=== PATIENT | male | born 1930 | race Caucasian/White ===

== ENCOUNTER 2018-07-22 12:06 | Emergency (ER) | payer MEDICARE, MEDICAID ==
[~2018-07-22] VITALS: Ht 177.8 cm; Wt 70.8 kg
[~2018-07-22 12:06] MED LIST: ALBUT2; AMLO2.5T2 PO; BACL10TA PO; DIAZ5TAB4 PO; DM/P240L8 PO; FLUT1DIS3 INH; LOSA25TA3 PO; OMEP20CA4 PO; SULF1TAB48 PO; WARF3TAB29 PO
--- NOTE | 2018-07-22 12:13 | NUR ---
DR PRUITT AT BEDSIDE
--- NOTE | 2018-07-22 12:25 | NUR ---
BIB RA 860 FROM [facility] HERE FOR EVAL OF RIGHT HIP / LEG PAIN - NO TRAUMA , MUSCLE CONTRACTED LE . DNR. TO ER BED 9, HOOKED TO MONITOR, AWAITING MD KWAN
[2018-07-22] MEDS ORDERED: ONDANSETRON HCL/PF 4 MG/2 ML VIAL ONE (12:27)
[2018-07-22] MEDS ORDERED: MORPHINE SULFATE INJ 4 MG/ML DISP.SYRIN ONE (12:28)
[2018-07-22] MEDS ORDERED: MORPHINE SULFATE INJ 2 MG/ML DISP.SYRIN IV ONE (12:30)
[2018-07-22] MEDS ORDERED: ONDANSETRON HCL/PF 4 MG/2 ML VIAL IVP ONE (12:30)
[2018-07-22] MEDS ORDERED: IV NS 0.9% 1,000 ML BAG IV ONE ×2 (12:30→13:00)
[2018-07-22] MEDS ORDERED: HYDROMORPHONE 1 MG/1 ML DISP.SYRIN IV ONE (13:00)
--- NOTE | 2018-07-22 13:00 | NUR ---
MARGO ACHARYA FROM [facility] AND CAN BENÍTEZ FROM [facility] AT BEDSIDE
[2018-07-22] MEDS ORDERED: HYDROMORPHONE 1 MG/1 ML DISP.SYRIN ONE (13:08)
[2018-07-22 13:14] LABS: BASOPHILS % (AUTO) 0.6 % (0.0-2.0); EOSINOPHILS % (AUTO) 2.7 % (0.0-6.0); HEMATOCRIT 39 % (39-51); HEMOGLOBIN 12.9 g/dL (13.5-17.5); LYMPHOCYTES % (AUTO) 13.2 % (20.0-44.0); MEAN CORPUSCULAR HGB CONC 33 g/dl (31.0-36.0); MEAN CORPUSCULAR VOLUME 93 fL (80-96); MONOCYTES # (AUTO) 0.8 /CMM (0.1-1.30); MONOCYTES % (AUTO) 10.5 % (2.0-12.0); NEUTROPHILS # (AUTO) 5.5 /CMM (1.8-8.9); PLATELET COUNT (AUTO) 220 /CMM (150-450); RED BLOOD CELL COUNT(AUTO) 4.21 MIL/uL (4.5-6.0); WHITE BLOOD COUNT (AUTO) 7.6 K/uL (4.3-11.0)
[2018-07-22 13:21] LABS: CALCIUM, SERUM 8.9 mg/dL (8.5-10.1); CARBON DIOXIDE 27 mmol/L (21-32); CHLORIDE 105 mmol/L (98-107); CREATININE 0.7 mg/dL (0.6-1.3); GLUCOSE 102 mg/dL (74-106); POTASSIUM 4.1 mmol/L (3.5-5.1); SODIUM SERUM 140 mmol/L (136-145); UREA NITROGEN, BLOOD 9 mg/dL (7-18)
--- NOTE | 2018-07-22 13:54 | NUR ---
SAROJ HYLTON,SISTER WITH DPO[employer],CALLED AT [phone] PRUITT
--- NOTE | 2018-07-22 14:10 | NUR ---
[place] CALLED AT [phone],ETA [phone] PER SHANIQUA,[facility] INST[facility]ER AT BEDSIDE AGGREED W/ ETA
[2018-07-22] MEDS ORDERED: HYDROMORPHONE 1 MG/1 ML DISP.SYRIN IV PRN (14:30)
[2018-07-22] MEDS ORDERED: ONDANSETRON HCL/PF 4 MG/2 ML VIAL IVP PRN (14:30)
[2018-07-22] MEDS ORDERED: MAGNESIUM HYDROXIDE 30 ML UDC PO PRN (14:30)
[2018-07-22] MEDS ORDERED: Z GUARD REMEDY 2 OZ OINT TP PRN (14:30)
[2018-07-22] MEDS ORDERED: HYDROCODONE/APAP 10/325MG 1 EA TABLET PO PRN (14:30)
[2018-07-22] MEDS ORDERED: ACETAMINOPHEN 325 MG TABLET PO PRN (14:30)
[2018-07-22] MEDS ORDERED: HYDROCODONE/APAP 5/325MG 1 EACH TABLET PO PRN (14:30)
[2018-07-22] MEDS ORDERED: MAG HYDROX/AL HYDROX/SIMETH 30 ML UDC PO PRN (14:30)
[2018-07-22] MEDS ORDERED: ZOLPIDEM TARTRATE 5 MG TABLET PO PRN (14:30)
--- NOTE | 2018-07-22 16:00 | NUR ---
IV removed. Catheter intact and site benign. Pressure and 4x4 applied to site. No bleeding noted. PICKED-UP BY [facility] UNIT [facility], WITH MARGO ACHARYA OF [facility] AND CAREGIVER CHRISTINA DELGADILLO TOOK ALL BELONGINGS WITH HIM, PATIENT IN STABLE CONDITION. WILL BE BROUGHT TO [id number] [place] [address], [address] [address]
[2018-07-22 16:19] VITALS: BP 110/73
[2018-07-22] MEDS ORDERED: DIAZEPAM 5 MG TABLET PO SCH (17:00)
[2018-07-22] MEDS ORDERED: WARFARIN SODIUM 1 MG TABLET PO SCH (17:00)
[2018-07-23] MEDS ORDERED: PANTOPRAZOLE 40 MG TABLET.DR PO SCH (07:30)
[2018-07-23] MEDS ORDERED: BACLOFEN (10 MG) 10 MG TABLET PO SCH (09:00)
[2018-07-23] MEDS ORDERED: LOSARTAN POTASSIUM 25 MG TABLET PO SCH (09:00)
[2018-07-23] MEDS ORDERED: AMLODIPINE BESYLATE 2.5 MG TABLET PO SCH (09:00)
[2018-07-23] MEDS ORDERED: FLUTICASONE/VILANTEROL 1 EACH BLST.W.DEV IH SCH (09:00)
== END 2018-07-22 16:15 | disposition home or self-care (01) ==
LOC: ER 12:08 → MEDSG2 13:11 → UNDOADMIN 13:11
DX: S72.491A Other fracture of lower end of right femur, initial encounter for closed fracture (principal); G80.9 Cerebral palsy, unspecified; J45.909 Unspecified asthma, uncomplicated; R33.9 Retention of urine, unspecified; Z88.6 Allergy status to analgesic agent; Z88.1 Allergy status to other antibiotic agents; Z88.9 Allergy status to unspecified drugs, medicaments and biological substances; X58.XXXA Exposure to other specified factors, initial encounter; Y93.89 Activity, other specified; Y92.89 Other specified places as the place of occurrence of the external cause; Y99.8 Other external cause status
CPT/HCPCS: 29505; 36415; 73551; 73560; 80048; 84484; 85025; 85730; 93005; 96374; 96375; 99291; A4606; J1170; J2270; J2405; J7030 ×2; 73552

== ENCOUNTER 2019-03-07 12:06 | Inpatient (IN) | payer MEDICARE, MEDICAID ==
[~2019-03-07] VITALS: Ht 167.6 cm; Wt 69.9 kg
[~2019-03-07 12:06] MED LIST changes: -ALBUT2; +ALBUT2 HHN
--- NOTE | 2019-03-07 12:10 | NUR ---
BIB RA 88 [facility], SOB X 1 WEEK. PATIENT A/OX3, BREATHING RAPID AND LABORED, ON 15LPM VIA NRB, WITH O2 SAT OF 94%. ATTACHED TO THE MONITOR, KEPT COMFORTABLE.
--- NOTE | 2019-03-07 12:24 | NUR ---
CAR LOT ATTENDANT ANI ARRIVED SAYING THAT PATIENT IS DNI, REQUESTED THAT POLST BE SENT RUDDY
[2019-03-07 12:26] LABS: BASOPHILS # (AUTO) 0.1 /CMM (0.0-0.2); BASOPHILS % (AUTO) 0.8 % (0.0-2.0); EOSINOPHILS % (AUTO) 0.2 % (0.0-6.0); HEMATOCRIT 45 % (39-51); HEMOGLOBIN 15.1 g/dL (13.5-17.5); LYMPHOCYTES # (AUTO) 0.3 /CMM (0.8-4.8); LYMPHOCYTES % (AUTO) 1.6 % (20.0-44.0); MEAN CORPUSCULAR HGB CONC 33 g/dl (31.0-36.0); MEAN CORPUSCULAR VOLUME 95 fL (80-96); MONOCYTES # (AUTO) 0.6 /CMM (0.1-1.30); MONOCYTES % (AUTO) 3.9 % (2.0-12.0); NEUTROPHILS # (AUTO) 15.1 /CMM (1.8-8.9); NEUTROPHILS % (AUTO) 93.5 % (43.0-81.0); PLATELET COUNT (AUTO) 188 /CMM (150-450); RED BLOOD CELL COUNT(AUTO) 4.75 MIL/uL (4.5-6.0); WHITE BLOOD COUNT (AUTO) 16.2 K/uL (4.3-11.0)
[2019-03-07] MEDS ORDERED: IV NS 0.9% 1,000 ML BAG IV ONE ×2 (12:30→13:00)
[2019-03-07] MEDS ORDERED: MIRT15TA7 PO (12:34)
[2019-03-07] MEDS ORDERED: NITR100C6 PO (12:35)
[2019-03-07 12:37] LABS: CALCIUM, SERUM 9.3 mg/dL (8.5-10.1); CARBON DIOXIDE 29 mmol/L (21-32); CHLORIDE 103 mmol/L (98-107); CREATININE 0.9 mg/dL (0.6-1.3); GLUCOSE 121 mg/dL (74-106); POTASSIUM 4.5 mmol/L (3.5-5.1); SODIUM SERUM 140 mmol/L (136-145); UREA NITROGEN, BLOOD 22 mg/dL (7-18)
[2019-03-07 12:46] LABS: ALANINE AMINOTRANSFERASE 26 U/L (12-78); ALKALINE PHOSPHATASE 140 U/L (46-116); ASPARTATE AMINOTRANSFERASE 30 U/L (15-37); BILIRUBIN,DIRECT 0.2 mg/dL (0.0-0.2); BILIRUBIN,TOTAL 0.6 mg/dL (0.2-1.0)
[2019-03-07 12:47] LABS: ALBUMIN 3.6 g/dL (3.4-5.0)
[2019-03-07 12:56] LABS: APPEARANCE,URINE Slightly Cloudy (CLEAR); BILIRUBIN,URINE Negative (NEGATIVE); BLOOD, URINE Large Ery/uL (NEGATIVE); COLOR,URINE Dark (YELLOW); KETONES,URINE Negative (NEGATIVE); LEUKOCYTE ESTERASE ,URINE Large (NEGATIVE); NITRITE, URINE Positive (NEGATIVE); PROTEIN,URINE 30 mg/dl (NEGATIVE); UGLUCOSE Negative (NEGATIVE); UROBILINOGEN,URINE 0.2 EU/dL (0.2)
[2019-03-07] MEDS ORDERED: PIPERACILLIN /TAZOBACTAM 3.375 G in IV D5W 50 ML IV ONE (13:00)
[2019-03-07 13:01] LABS: BACTERIA,URINE Moderate /HPF (None Seen); RBC,URINE 21-50 /HPF (0-2); SQUAMOUS EPITHELIAL CELL,UR Few /HPF (None Seen); WBC,URINE TOO NUMEROUS TO COUN /HPF (0-3)
--- NOTE | 2019-03-07 13:20 | NUR ---
CALLED BLAINE, TESFAYE LOZANO PAGED
--- NOTE | 2019-03-07 14:43 | NUR ---
Report given to BRAN RN. Patient initially refused to stay, but explained risks and benefits. Patient changed his mind and agreed to stay for admission. Patient in no distress.
--- NOTE | 2019-03-07 14:47 | NUR ---
PATIENT TRANSFERRED TO MED SURG 111-1, IN STABLE CONDITION ON 5LPM VIA NC WITH SPO2 OF 94%. ENDORSED TO BRAN DURAND.
--- NOTE | 2019-03-07 15:04 | NUR ---
MS/RN NOTE THE PATIENT IS RECEIVED FROM ER ON A GURNEY. THE PATIENT IS TRANSFERRED TO BED. PATIENT ALERT AND ORIENTED TO SELF AND PLACE. ABLE TO MAKE NEEDS KNOWN VERBALLY. ON OXYGEN AT 5L/MIN VIA NASAL CANNULA AND DENIES SOB. RESPIRATION REGULAR AND UNLABORED. DENIES PAIN. THE PATIENT IN NO APPARENT DISTRESS. LEFT HAND G 18 AND RAC G 20 PATENT AND SALINE LOCKED. BED LOW AND LOCKED. SIDE RAILS UP X3. BED ALARM ON. CALL LIGHT WITHIN REACH. WILL CONTINUE TO MONITOR. Addendum: 03/07/19 at 1523 by MELY LE RN PATIENT HAS A PIZANO CATH WHICH HE CAME WITH.
[2019-03-07 16:00] VITALS: BP 132/75
[2019-03-07] MEDS ORDERED: MAG HYDROX/AL HYDROX/SIMETH 30 ML UDC PO PRN (16:00)
[2019-03-07] MEDS ORDERED: HYDROCODONE/APAP 5/325MG 1 EACH TABLET PO PRN ×2 (16:00→16:30)
[2019-03-07] MEDS ORDERED: ZOLPIDEM TARTRATE 5 MG TABLET PO PRN (16:00)
[2019-03-07] MEDS ORDERED: ONDANSETRON HCL/PF 4 MG/2 ML VIAL IVP PRN (16:00)
[2019-03-07] MEDS ORDERED: Z GUARD REMEDY 2 OZ OINT TP PRN (16:00)
[2019-03-07] MEDS ORDERED: MAGNESIUM HYDROXIDE 30 ML UDC PO PRN (16:00)
[2019-03-07] MEDS ORDERED: methylPREDNISolone SOD SUCC 125 MG/2ML VIAL IV ONE (16:30)
[2019-03-07] MEDS: IV NS 0.9% 1,000 ML IV PRN (17:21)
--- NOTE | 2019-03-07 18:56 | NUR ---
MS/RN NOTE THE PATIENT ALERT AND ORIENTED X2. ABLE TO MAKE NEED SKNOWN VERBALY. RECEIVING OXYGEN AT 5L/MIN VIA NASAL CANNULA AND SATURATION IS AT 96%. DENIES SOB. DENIES PAIN. IN NO APPARENT DISTRESS. LEFT HAND G 18 PATENT AND SALINE LOCKED. RAC G 20 PATENT AND ORMAL SALINE INFUSING PER ORDER. NO S/S INFILTRATION NOTED. BED LOW AND LOCKED. SIDE RIALS UP X33. CALL LIGHT WITHIN REACH. WILL ENDORSE TO FISHING MANAGER.
--- NOTE | 2019-03-07 19:00 | NUR ---
MS/RN NOTE LCACTIC ACID RECHECK NPOT DONE YET DUE TO PATIENT BEING HARD STICK. DIVING FISHER WITH PATIENT NOW TRYING TO GET BLOOD. WILL ENDORSE TO PMO PROJECT MANAGER.
--- NOTE | 2019-03-07 19:30 | NUR ---
RECEIVED PATIENT IN BED AWAKE. AO X 2, ABLE TO MAKE NEEDS KNOWN; SPEECH CAN BE UNCLEAR AT TIMES. NO ACUTE DISTRESS NOTED. DENIES ANY PAIN AT THIS TIME. IV SITE PATENT, INTACT; IVF INFUSING ORDERED. PIZANO CATH PATENT, INTACT; DRAINING YELLOW URINE. SAFETY REMINDERS GIVEN. ON LOW BED WITH BILATERAL UPPER SIDE RAILS UP. CALL CAVANAUGH WITHIN EASY REACH. WILL CONTINUE TO MONITOR.
[2019-03-07 20:00] VITALS: BP 114/57
[2019-03-07] MEDS: ALBUTEROL FS 2.5 MG/0.5 ML VIAL.NEB NEB SCH ×2 (20:07→23:30)
[2019-03-07] MEDS: IPRATROPIUM NEB FS 0.5 MG/2.5 ML AMPUL.NEB NEB SCH ×2 (20:07→23:30)
[2019-03-07] MEDS: PIPERACILLIN /TAZOBACTAM 3.375 G in IV D5W 100 ML IV SCH (21:23)
[2019-03-08] MEDS: ALBUTEROL FS 2.5 MG/0.5 ML VIAL.NEB NEB SCH ×6 (03:39→23:48)
[2019-03-08] MEDS: IPRATROPIUM NEB FS 0.5 MG/2.5 ML AMPUL.NEB NEB SCH ×6 (03:39→23:48)
[2019-03-08 04:00] VITALS: BP 96/50
[2019-03-08] MEDS: PIPERACILLIN /TAZOBACTAM 3.375 G in IV D5W 100 ML IV SCH ×3 (05:15→21:15)
--- NOTE | 2019-03-08 06:00 | NUR ---
PATIENT ASLEEP, EASILY AROUSABLE. RESPIRATIONS EVEN. NO SIGNS OF PAIN NOTED. DUE MEDS GIVEN WITH NO ASE NOTED. IVF INFUSING ORDERED. NEEDS ATTENDED. TURNED AND REPOSITIONED Q 2 HOURS. KEPT CLEAN AND DRY. SAFETY REMINDERS AND COMFORT MEASURES IN PLACE. WILL GIVE REPORT TO DAY SHIFT FOR CONTINUITY OF CARE.
[2019-03-08 07:33] LABS: HEMATOCRIT 37 % (39-51); HEMOGLOBIN 12.2 g/dL (13.5-17.5); LYMPHOCYTES # (AUTO) 0.3 /CMM (0.8-4.8); LYMPHOCYTES % (AUTO) 2.7 % (20.0-44.0); MEAN CORPUSCULAR HGB CONC 33 g/dl (31.0-36.0); MEAN CORPUSCULAR VOLUME 95 fL (80-96); MONOCYTES # (AUTO) 0.2 /CMM (0.1-1.30); MONOCYTES % (AUTO) 1.8 % (2.0-12.0); NEUTROPHILS # (AUTO) 9.2 /CMM (1.8-8.9); NEUTROPHILS % (AUTO) 95.5 % (43.0-81.0); PLATELET COUNT (AUTO) 148 /CMM (150-450); RED BLOOD CELL COUNT(AUTO) 3.93 MIL/uL (4.5-6.0); WHITE BLOOD COUNT (AUTO) 9.6 K/uL (4.3-11.0)
[2019-03-08 07:46] LABS: ALANINE AMINOTRANSFERASE 19 U/L (12-78); ALBUMIN 2.7 g/dL (3.4-5.0); ALKALINE PHOSPHATASE 105 U/L (46-116); ASPARTATE AMINOTRANSFERASE 15 U/L (15-37); BILIRUBIN,TOTAL 0.5 mg/dL (0.2-1.0); CALCIUM, SERUM 8.4 mg/dL (8.5-10.1); CARBON DIOXIDE 24 mmol/L (21-32); CHLORIDE 107 mmol/L (98-107); CREATININE 0.8 mg/dL (0.6-1.3); GLUCOSE 148 mg/dL (74-106); MAGNESIUM 1.9 mg/dL (1.8-2.4); PHOSPHORUS 3.1 mg/dL (2.5-4.9); POTASSIUM 4.2 mmol/L (3.5-5.1); SODIUM SERUM 142 mmol/L (136-145); TOTAL PROTEIN, SERUM 6.3 g/dL (6.4-8.2); UREA NITROGEN, BLOOD 18 mg/dL (7-18)
[2019-03-08] MEDS: PANTOPRAZOLE 40 MG TABLET.DR PO SCH (07:48)
[2019-03-08 08:00] VITALS: BP_SYST 125; BP_SYST 84; BP_DIAS 41; BP_DIAS 50
--- NOTE | 2019-03-08 08:09 | NUR ---
WOUND CARE CONSULT: PT PRESENTS WITH SACRAL SCARRING EXTENDING TO BUTTOCKS, RT MEDIAL ANKLE SCAR, BONY AREA WITH BLANCHABLE REDNESS TO RT HEEL, PRESENT ON ADMISSION. RECOMMENDATIONS MADE FOR SKIN PROTECTION. DISCUSSED WITH NURSING STAFF. PT IS IMMOBILE. JERICA VILLAFANA NOTED. WILL SEE PRN. ARAGON IN AGREEMENT WITH PLAN OF CARE. Addendum: 03/08/19 at 0810 by KYE BRIGGS WNDNU Amended: Links added.
[2019-03-08] MEDS: methylPREDNISolone SOD SUCC 40 MG/ML VIAL IV SCH ×3 (09:07→16:54)
[2019-03-08] MEDS: BACLOFEN (10 MG) 10 MG TABLET PO SCH (09:08)
[2019-03-08] MEDS: DIAZEPAM 5 MG TABLET PO SCH ×2 (09:11→16:54)
[2019-03-08 09:42] LABS: THYROID STIMULATING HORMONE 0.337 uIU/mL (0.358-3.74)
[2019-03-08] MEDS: LOSARTAN POTASSIUM 25 MG TABLET PO SCH (09:58)
[2019-03-08] MEDS: FLUTICASONE/VILANTEROL 1 EACH BLST.W.DEV IH SCH (10:50)
--- NOTE | 2019-03-08 11:07 | NUR ---
MS RN OPENING NOTE RECEIVED PATIENT IN BED AWAKE. AO X 2, NO SOB OR ACUTE DISTRESS NOTED. ATTEMPTING TO MAKE NEEDS KNOWN BUT HAS GARBLED SPEECH. L HAND # 22 IV INTACT AND PATENT, R WRIST #20 IV INTACT AND PATENT. IVF INFUSING ORDERED. PIZANO CATH INTACT AND PATENT DRAINING YELLOW URINE. SAFETY MEASURES IN PLACE. BED IN LOW LOCKED POSITION, UPPER SIDE RAILS UP. CALL LIGHT WITHIN EASY REACH. WILL CONTINUE TO MONITOR.
[2019-03-08] MEDS: IV NS 0.9% 1,000 ML IV PRN (11:35)
[2019-03-08] MEDS: ACETAMINOPHEN 325 MG TABLET PO PRN ×2 (11:35→18:07)
[2019-03-08 11:41] LABS: CHOLESTEROL 130 mg/dL (<200); HDL CHOLESTEROL 65 mg/dL (40-60); LDL 57 mg/dL (0-99); TRIGLYCERIDES 31 mg/dL (30-150)
[2019-03-08 16:00] VITALS: BP 136/65
[2019-03-08 18:28] VITALS: BP 136/65
--- NOTE | 2019-03-08 19:10 | NUR ---
MS RN NOTE RECEIVED PT IN STABLE CONDITION A/O X2, CURRENTLY AWAKE IN BED. NO SIGNS OF SOB OR DISTRESS. NO INDICATIONS OF PAIN. PIZANO IN PLACE WITH ADEQUATE URINE DRAINING. IV IN L HAND AND L WRIST IN PLACE WITH IVF INFUSING. ALL CURRENT NEEDS ATTENDED TO. BED LOW, LOCKED, UPPER RAILS UP, WILL REPOSITION PT PER UNIT PROTOCOL, AND CALL LIGHT WITHIN REACH. WILL CONT. TO MONITOR.
[2019-03-08 20:00] VITALS: BP 100/47
[2019-03-08] MEDS: MIRTAZAPINE 15 MG TABLET PO SCH (21:15)
[2019-03-09] MEDS: IV NS 0.9% 1,000 ML IV PRN (03:39)
[2019-03-09] MEDS: PIPERACILLIN /TAZOBACTAM 3.375 G in IV D5W 100 ML IV SCH ×3 (04:12→21:39)
[2019-03-09] MEDS: ALBUTEROL FS 2.5 MG/0.5 ML VIAL.NEB NEB SCH ×6 (04:20→23:30)
[2019-03-09] MEDS: IPRATROPIUM NEB FS 0.5 MG/2.5 ML AMPUL.NEB NEB SCH ×6 (04:20→23:30)
--- NOTE | 2019-03-09 06:23 | NUR ---
MS RN NOTE PT IN STABLE CONDITION A/O X2, CURRENTLY AWAKE IN BED. NO SIGNS OF SOB OR DISTRESS. NO INDICATIONS OF PAIN. PIZANO IN PLACE WITH ADEQUATE URINE DRAINING. IV IN L HAND AND L WRIST IN PLACE WITH IVF INFUSING. ALL CURRENT NEEDS ATTENDED TO. BED LOW, LOCKED, UPPER RAILS UP, WILL REPOSITION PT PER UNIT PROTOCOL, AND CALL LIGHT WITHIN REACH. WILL CONT. TO MONITOR AND ENDORSE TO NEXT SHIFT FOR SIMONE.
--- NOTE | 2019-03-09 07:25 | NUR ---
MS RN OPENING NOTES RECEIVED PT IN BED, AWAKE, A/O X3-4. PT ON SUPPLEMENTARY OXYGEN AT 4L VIA NC, WITH NO ACUTE RESPIRATORY DISTRESS NOTED. PT DENIES PAIN OR DISCOMFORT AT THIS TIME. PT DENIES ANY CONCERNS OR QUESTIONS WELL. IVF NS AT 75 ML/HR TO RIGHT WRIST G20, INTACT AND FLUID INFUSING WELL. PIV LEFT HAND G18, FLUSHED WITH NS, INTACT AND FLUID INFUSING WELL. HOB KEPT ELEVATED. PT'S KEPT COMFORTABLE. PT'S BED IN LOWEST, LOCKED POSITION WITH SR X3. CALL LIGHT KEPT WITHIN REACH WILL CONTINUE PLAN OF CARE.
[2019-03-09] MEDS: BACLOFEN (10 MG) 10 MG TABLET PO SCH (08:11)
[2019-03-09] MEDS: DIAZEPAM 5 MG TABLET PO SCH ×2 (08:11→16:52)
[2019-03-09] MEDS: PANTOPRAZOLE 40 MG TABLET.DR PO SCH (08:11)
[2019-03-09] MEDS: FLUTICASONE/VILANTEROL 1 EACH BLST.W.DEV IH SCH (08:12)
[2019-03-09] MEDS: methylPREDNISolone SOD SUCC 40 MG/ML VIAL IV SCH ×3 (08:12→16:52)
[2019-03-09] MEDS: LOSARTAN POTASSIUM 25 MG TABLET PO SCH (08:13)
[2019-03-09 10:36] LABS: HEMATOCRIT 36 % (39-51); HEMOGLOBIN 12.1 g/dL (13.5-17.5); LYMPHOCYTES # (AUTO) 0.2 /CMM (0.8-4.8); LYMPHOCYTES % (AUTO) 2.8 % (20.0-44.0); MEAN CORPUSCULAR HGB CONC 33 g/dl (31.0-36.0); MEAN CORPUSCULAR VOLUME 95 fL (80-96); MONOCYTES # (AUTO) 0.7 /CMM (0.1-1.30); NEUTROPHILS # (AUTO) 6.6 /CMM (1.8-8.9); NEUTROPHILS % (AUTO) 88.2 % (43.0-81.0); PLATELET COUNT (AUTO) 164 /CMM (150-450); RED BLOOD CELL COUNT(AUTO) 3.83 MIL/uL (4.5-6.0); WHITE BLOOD COUNT (AUTO) 7.4 K/uL (4.3-11.0)
[2019-03-09 10:49] LABS: CARBON DIOXIDE 23 mmol/L (21-32); CHLORIDE 109 mmol/L (98-107); GLUCOSE 131 mg/dL (74-106); POTASSIUM 4.5 mmol/L (3.5-5.1); SODIUM SERUM 143 mmol/L (136-145)
[2019-03-09 10:50] LABS: CALCIUM, SERUM 8.6 mg/dL (8.5-10.1); CREATININE 0.8 mg/dL (0.6-1.3); MAGNESIUM 2.2 mg/dL (1.8-2.4); PHOSPHORUS 2.5 mg/dL (2.5-4.9); UREA NITROGEN, BLOOD 18 mg/dL (7-18)
[2019-03-09] MEDS: ACETAMINOPHEN 325 MG TABLET PO PRN (14:00)
[2019-03-09 16:00] VITALS: BP 103/46
--- NOTE | 2019-03-09 18:40 | NUR ---
MS RN CLOSING NOTES PT IN BED, AWAKE, A/O X3-4. PT ON SUPPLEMENTARY OXYGEN AT 4L VIA NC, WITH NO ACUTE RESPIRATORY DISTRESS NOTED. PT DENIES PAIN OR DISCOMFORT AT THIS TIME. PT DENIES ANY CONCERNS OR QUESTIONS WELL. IVF NS AT 75 ML/HR TO RIGHT WRIST G20, INTACT AND FLUID INFUSING WELL. PIV LEFT HAND G18, FLUSHED WITH NS, INTACT AND FLUID INFUSING WELL. HOB KEPT ELEVATED. PT'S KEPT COMFORTABLE. PT'S BED IN LOWEST, LOCKED POSITION WITH SR X3. CALL LIGHT KEPT WITHIN REACH WILL CONTINUE PLAN OF CARE.
--- NOTE | 2019-03-09 19:30 | NUR ---
MS/RN RECEIVE PATIENT AWAKE, ALERT, ORIENTED, COMFORTABLE, NO DISTRESS NOTED, CALL LIGHT IN REACH. WILL MONITOR.
[2019-03-09 22:00] VITALS: BP 108/63
[2019-03-09] MEDS: MIRTAZAPINE 15 MG TABLET PO SCH (22:00)
[2019-03-10] MEDS: IV NS 0.9% 1,000 ML IV PRN ×2 (01:35→18:24)
--- NOTE | 2019-03-10 02:35 | NUR ---
MS/RN PATIENT IS REMOVING OXYGEN, O2 SAT ON RA 88%, PATIENT DOES NOT FOLLOW COMMANDS TO NOT REMOVE OXYGEN, OBTAINED ORDER FOR MITTENS BUT DID NOT WORK, STILL ABLE TO REMOVE OXYGEN CANULA, OBTAINED ORDER FOR SOFT WRIST RESTRAINT. WILL MONITOR PER PROTOCOL.
[2019-03-10] MEDS: ALBUTEROL FS 2.5 MG/0.5 ML VIAL.NEB NEB SCH ×6 (03:22→23:30)
[2019-03-10] MEDS: IPRATROPIUM NEB FS 0.5 MG/2.5 ML AMPUL.NEB NEB SCH ×6 (03:22→23:30)
[2019-03-10] MEDS: PIPERACILLIN /TAZOBACTAM 3.375 G in IV D5W 100 ML IV SCH ×3 (05:15→21:06)
--- NOTE | 2019-03-10 06:08 | NUR ---
MS/RN REFUSED 0400 VITAL SIGNS, PATIENT WAS VERY UPSET AND AGITATED OVER THE BREATHING TREATMENTS BY RT, PATIENT WAS SAYING BAD WORDS TO THE NURSE, RT AND LOCKSTITCH HEMMER.
--- NOTE | 2019-03-10 06:29 | NUR ---
MS/RN PATIENT IS AWAKE, CALM AND COMFORTABLE, NO DISTRESS NOTED, CALL LIGHT IN REACH. ALL NEEDS ATTENDED AT THIS TIME, WILL CONTINUE TO MONITOR.
[2019-03-10 06:33] LABS: CALCIUM, SERUM 8.5 mg/dL (8.5-10.1); CARBON DIOXIDE 24 mmol/L (21-32); CHLORIDE 110 mmol/L (98-107); CREATININE 0.9 mg/dL (0.6-1.3); GLUCOSE 126 mg/dL (74-106); PHOSPHORUS 2.2 mg/dL (2.5-4.9); POTASSIUM 4.5 mmol/L (3.5-5.1); SODIUM SERUM 143 mmol/L (136-145); UREA NITROGEN, BLOOD 23 mg/dL (7-18)
[2019-03-10 06:44] LABS: BASOPHILS % (AUTO) 0.1 % (0.0-2.0); HEMATOCRIT 35 % (39-51); HEMOGLOBIN 11.5 g/dL (13.5-17.5); LYMPHOCYTES # (AUTO) 0.2 /CMM (0.8-4.8); LYMPHOCYTES % (AUTO) 5.5 % (20.0-44.0); MEAN CORPUSCULAR HGB CONC 33 g/dl (31.0-36.0); MEAN CORPUSCULAR VOLUME 96 fL (80-96); MONOCYTES # (AUTO) 0.4 /CMM (0.1-1.30); MONOCYTES % (AUTO) 9.5 % (2.0-12.0); NEUTROPHILS # (AUTO) 3.8 /CMM (1.8-8.9); NEUTROPHILS % (AUTO) 84.9 % (43.0-81.0); PLATELET COUNT (AUTO) 169 /CMM (150-450); RED BLOOD CELL COUNT(AUTO) 3.64 MIL/uL (4.5-6.0); WHITE BLOOD COUNT (AUTO) 4.5 K/uL (4.3-11.0)
--- NOTE | 2019-03-10 07:58 | NUR ---
RT PATIENT SEEN AND SPOKEN WITH. PATIENT AWAKE, ALERT, NO SOB. PATIENT REFUSED RESP TX. B/S DIM CLEAR. RN NOTIFIED
[2019-03-10 08:00] VITALS: BP 138/60
--- NOTE | 2019-03-10 08:00 | NUR ---
MS1/RN AM SHIFT INITIAL NOTES RECEIVED PT ASLEEP IN BED, EASILY AROUSED, PT A/O X 1 MUMBLED WORDS, NO ACUTE CHANGE OF CONDITION, FEVER OR RESPIRATORY DISTRESS, PT ON 2L O2 VIA N/C SATURATING @ 95%, LUNG SOUNDS DIMINISHED. RESPIRATIONS EVEN & UNLABORED. WITH ON GOING IV INFUSION OF NS @ 75CC/HR, IV SITE PATENT WITH NO S/S OF INFECTION, ALSO INFUSING ZOSYN @ 25CC/HR. PIZANO CATHETER INTACT WITH YELLOW URINE OUTPUT. BILATERAL SOFT RESTRAINTS IN PLACED, RELEASED TO CHECK FOR COMFORT AND CIRCULATION THEN PLACED BACK. PT IS COMFORTABLE AT THIS TIME. SCHEDULED AM MEDS TO BE GIVEN, CL WITHIN REACHED AND SAFETY MAINTAINED. ON GOING MONITORING. Addendum: 03/10/19 at 1558 by TRESA CROWELL RN PT ON 4L O2 VIA N/C INSTEAD OF 2L, LUNG SOUNDS WERE DIMINISHED TO RHONCHI.
[2019-03-10] MEDS: LOSARTAN POTASSIUM 25 MG TABLET PO SCH (08:47)
[2019-03-10] MEDS: PANTOPRAZOLE 40 MG TABLET.DR PO SCH (08:47)
[2019-03-10] MEDS: FLUTICASONE/VILANTEROL 1 EACH BLST.W.DEV IH SCH (08:47)
[2019-03-10] MEDS: BACLOFEN (10 MG) 10 MG TABLET PO SCH (08:47)
[2019-03-10] MEDS: methylPREDNISolone SOD SUCC 40 MG/ML VIAL IV SCH ×3 (08:47→18:09)
[2019-03-10] MEDS: DIAZEPAM 5 MG TABLET PO SCH ×2 (08:51→18:10)
[2019-03-10] MEDS: ACETAMINOPHEN 325 MG TABLET PO PRN (09:04)
[2019-03-10] MEDS ORDERED: NEUTRA PHOS 1 POWD.PACKET PO ONE (11:30)
--- NOTE | 2019-03-10 12:30 | NUR ---
MS1/RN O2 SATURATION NOTIFIED PRIMARY MD THAT PT IS SATURATING 87% ON 2L O2 VIA N/C AND 93% ON 4L O2 VIA N/C. RECEIVED ORDERS, NOTED AND CARRIED OUT. MONITORING CONTINUED.
[2019-03-10] MEDS ORDERED: POTASSIUM CHLORIDE 20 MEQ TAB.PRT.SR PO ONE (13:00)
[2019-03-10] MEDS ORDERED: FUROSEMIDE 40 MG/4 ML VIAL IV ONE (13:00)
[2019-03-10 16:00] VITALS: BP_SYST 138; BP_SYST 148; BP_DIAS 60; BP_DIAS 77
--- NOTE | 2019-03-10 18:00 | NUR ---
MS1/RN O2 SATURATION PT PLACED ON 2L O2 VIA N/C, OBSERVED TO SATURATED @ 96%, DR. LOZANO NOTIFIED. MONITORING CONTINUED.
--- NOTE | 2019-03-10 19:30 | NUR ---
MS1/RN AM SHIFT END NOTES NO ACUTE CHANGE OF CONDITION NOTED DURING THE SHIFT. ALL NEEDS MET. PT ENDORSED TO PM NURSE TO CONTINUE CARE.
[2019-03-10 20:00] VITALS: BP 129/92
--- NOTE | 2019-03-10 20:00 | NUR ---
MS RN NOTES RECEIVED PATIENT AWAKE AND CALM IN BED WITH NO DISTRESS NOTED. CALL LIGHT WITHIN REACH. PERIPHERAL LINE INTACT AND PATENT. BILATERAL SOFT WRIST RESTRAINTS INTACT WITH NO NEW SKIN BREAKDOWN OR DISCOLORATION AND NOTED WITH GOOD CIRCULATION IN BOTH EXTREMITIES. BED IN LOW LOCK SETTING. ALL BELONGINGS KEPT NEAR BEDSIDE. WILL CONTINUE TO MONITOR.
[2019-03-10] MEDS: MIRTAZAPINE 15 MG TABLET PO SCH (21:05)
[2019-03-11] VITALS: BP 129/92
[2019-03-11] MEDS: IPRATROPIUM NEB FS 0.5 MG/2.5 ML AMPUL.NEB NEB SCH ×5 (03:30→20:02)
[2019-03-11] MEDS: ALBUTEROL FS 2.5 MG/0.5 ML VIAL.NEB NEB SCH ×5 (03:30→20:02)
[2019-03-11 04:00] VITALS: BP 141/71
[2019-03-11] MEDS: PIPERACILLIN /TAZOBACTAM 3.375 G in IV D5W 100 ML IV SCH (05:34)
--- NOTE | 2019-03-11 06:37 | NUR ---
MS RN NOTES PATIENT ASLEEP IN BED WITH NO DISTRESS NOTED. CALL LIGHT WITHIN REACH. PERIPHERAL LINES INTACT AND PATENT. ALL DUE MEDS GIVEN ORDERED WITH NO ASE NOTED. NO FURTHER C/O PAIN OR DISCOMFORT. BED IN LOW LOCK SETTING. ALL BELONGINGS KEPT NEAR BEDSIDE. WILL CONTINUE TO MONITOR.
[2019-03-11 07:31] LABS: BASOPHILS % (AUTO) 0.1 % (0.0-2.0); HEMATOCRIT 40 % (39-51); HEMOGLOBIN 13.1 g/dL (13.5-17.5); LYMPHOCYTES # (AUTO) 0.4 /CMM (0.8-4.8); LYMPHOCYTES % (AUTO) 5.9 % (20.0-44.0); MEAN CORPUSCULAR HGB CONC 33 g/dl (31.0-36.0); MEAN CORPUSCULAR VOLUME 94 fL (80-96); MONOCYTES # (AUTO) 0.8 /CMM (0.1-1.30); MONOCYTES % (AUTO) 11.7 % (2.0-12.0); NEUTROPHILS # (AUTO) 5.9 /CMM (1.8-8.9); NEUTROPHILS % (AUTO) 82.3 % (43.0-81.0); PLATELET COUNT (AUTO) 211 /CMM (150-450); RED BLOOD CELL COUNT(AUTO) 4.19 MIL/uL (4.5-6.0); WHITE BLOOD COUNT (AUTO) 7.1 K/uL (4.3-11.0)
[2019-03-11 07:33] LABS: CALCIUM, SERUM 8.2 mg/dL (8.5-10.1); CARBON DIOXIDE 27 mmol/L (21-32); CHLORIDE 107 mmol/L (98-107); CREATININE 0.8 mg/dL (0.6-1.3); GLUCOSE 114 mg/dL (74-106); PHOSPHORUS 2.6 mg/dL (2.5-4.9); POTASSIUM 3.9 mmol/L (3.5-5.1); SODIUM SERUM 145 mmol/L (136-145); UREA NITROGEN, BLOOD 21 mg/dL (7-18)
[2019-03-11 08:00] VITALS: BP 152/80
--- NOTE | 2019-03-11 08:00 | NUR ---
MS1/RN AM SHIFT INITIAL NOTES RECEIVED PT AWAKE IN BED, PT A/O X 1-2, TRIED TO TALK MUMBLED WORDS, NO ACUTE CHANGE OF CONDITION, RESPIRATORY DISTRESS, PT ON 2L O2 VIA N/C SATURATING @ 94%, LUNG SOUNDS CLEAR. RESPIRATIONS EVEN & UNLABORED. WITH ON GOING IV INFUSION OF NS @ 75CC/HR, IV SITE PATENT WITH NO S/S OF INFECTION, PIZANO CATHETER INTACT WITH YELLOW URINE OUTPUT. PT IS COMFORTABLE AT THIS TIME. SCHEDULED AM MEDS TO BE GIVEN, CL WITHIN REACHED AND SAFETY MAINTAINED. ON GOING MONITORING.
[2019-03-11] MEDS: LOSARTAN POTASSIUM 25 MG TABLET PO SCH (08:58)
[2019-03-11] MEDS: PANTOPRAZOLE 40 MG TABLET.DR PO SCH (08:58)
[2019-03-11] MEDS: methylPREDNISolone SOD SUCC 40 MG/ML VIAL IV SCH ×3 (08:58→18:24)
[2019-03-11] MEDS: BACLOFEN (10 MG) 10 MG TABLET PO SCH (08:58)
[2019-03-11] MEDS: DIAZEPAM 5 MG TABLET PO SCH ×2 (08:58→18:24)
[2019-03-11] MEDS: FLUTICASONE/VILANTEROL 1 EACH BLST.W.DEV IH SCH (08:59)
[2019-03-11] MEDS ORDERED: MEROPENEM 1 G in IV NS 0.9% 100 ML IV SCH (10:00)
[2019-03-11] MEDS ORDERED: LEVO500T75 PO (14:43)
[2019-03-11 16:00] VITALS: BP 121/67
--- NOTE | 2019-03-11 19:48 | NUR ---
MS1/RN AM SHIFT END NOTES NO ACUTE CHANGE OF CONDITION NOTED DURING THE SHIFT. TRANSPORT SERVICE ARRANGED. ETA 2130. TRIP # [id number]. PT'S ASSOCIATE DATA SCIENTIST NOTIFIED. PT ENDORSED TO PM NURSE TO CONTINUE CARE.
[2019-03-11 20:00] VITALS: BP 140/74
--- NOTE | 2019-03-11 20:00 | NUR ---
NELLIE RN INITIAL NOTES RECEIVED PT AWAKE IN BED, PT A/O X 1-2, TRIED TO TALK MUMBLED WORDS NO RESPIRATORY DISTRESS, PT ON 2L O2 VIA N/C SATURATING @ 96%, LUNG SOUNDS CLEAR. RESPIRATIONS EVEN & UNLABORED. IV SITE PATENT WITH NO S/S OF INFECTION, PIZANO CATHETER INTACT WITH YELLOW URINE OUTPUT.AWAIGHTING FOR TRANSPORTATION TO TAKE HIM HOME AT 2130. PT IS COMFORTABLE AT THIS TIME. CALL LIGHT WITHIN REACHED AND SAFETY MEASURES MAINTAINED. ON GOING MONITORING.
--- NOTE | 2019-03-11 22:20 | NUR ---
RN NOTES TRANSPORTATION IS HERE TO CANNING MACHINE OPERATOR THE PATIENT . PATIENT IS A/A/OX2, NO RESPIRATORY DISTRESS, ON 2L O2 VIA NC WITH SPO2 OF 96%. HR 96 B/P 133/96, RR 16 T-96.8. NO COMPLAINT OF PAIN OR DISCOMFORT, PIZANO CATH IS IN PLACE AND PATIENT IS GOING HOME WITH PIZANO CATH. IV AND WRIST BAND HAS BEEN REMOVED.. PATIENT HAS NO BELONGINGS AT THE BEDSIDE. PATIENT IS GOING HOME WITH THE OXYGEN, CALLED ANI(24HR TICKET AGENT) AND VERIFIED THAT PT HAS OXYGEN AT HOME AND SHE IS WEIGHTING HIM AT HOME. REPORT IS GIVEN TO TRANSPORTATION PERSONAL. SAFETY MAINTAINED.
== END 2019-03-11 23:16 | disposition home health service (06) | DRG 871 ==
LOC: ER 12:06 → MEDSG1 13:46
PROVIDERS: ADMIT Nurse Practitioner Acute Care; ATTEND Nurse Practitioner Acute Care
DX: A41.9 Sepsis, unspecified organism (principal); J18.9 Pneumonia, unspecified organism; R53.2 Functional quadriplegia; N39.0 Urinary tract infection, site not specified; D68.69 Other thrombophilia; E87.2 Acidosis; K21.9 Gastro-esophageal reflux disease without esophagitis; Z86.718 Personal history of other venous thrombosis and embolism; E11.9 Type 2 diabetes mellitus without complications; R65.20 Severe sepsis without septic shock; J44.9 Chronic obstructive pulmonary disease, unspecified; E88.09 Other disorders of plasma-protein metabolism, not elsewhere classified; Z66 Do not resuscitate; L89.90 Pressure ulcer of unspecified site, unspecified stage; R06.03 Acute respiratory distress; G80.8 Other cerebral palsy; B96.1 Klebsiella pneumoniae [K. pneumoniae] as the cause of diseases classified elsewhere; B96.5 Pseudomonas (aeruginosa) (mallei) (pseudomallei) as the cause of diseases classified elsewhere; Z16.12 Extended spectrum beta lactamase (ESBL) resistance
CPT/HCPCS: 36415; 71045-TC; 80048-TC; 80053-TC; 80061-TC; 80076-TC; 81000-TC; 83605-TC; 83735-TC; 84100-TC; 84443-TC; 84484-TC; 85025-TC; 85730-TC; 87040-TC; 87081-TC; 87086-TC; 87186-TC; 92526; 92611-TC; 94799-TC; 97112-TC; 97530-TC; A6403; G0378; J1940; J2185; J2543; J2920; J2930; J7030; J7050; J7060

== ENCOUNTER 2019-05-22 07:04 | Inpatient (IN) | payer MEDICARE, MEDICAID ==
[~2019-05-22] VITALS: Ht 167.6 cm; Wt 70.8 kg
[~2019-05-22 07:04] MED LIST changes: -AMLO2.5T2 PO; -DM/P240L8 PO; +LEVO500T75 PO; +MIRT15TA7 PO; -SULF1TAB48 PO; -WARF3TAB29 PO
[2019-05-22] MEDS ORDERED: VANCOMYCIN 1 GM VIAL ONE (07:21)
[2019-05-22] MEDS ORDERED: PIPERACILLIN /TAZOBACTAM 3.375 G VIAL IV ONE (07:21)
[2019-05-22 07:26] LABS: BASOPHILS % (AUTO) 0.4 % (0.0-2.0); EOSINOPHILS % (AUTO) 5.6 % (0.0-6.0); HEMATOCRIT 39 % (39-51); HEMOGLOBIN 12.8 g/dL (13.5-17.5); LYMPHOCYTES # (AUTO) 0.4 /CMM (0.8-4.8); LYMPHOCYTES % (AUTO) 3.8 % (20.0-44.0); MEAN CORPUSCULAR HGB CONC 33 g/dl (31.0-36.0); MEAN CORPUSCULAR VOLUME 97 fL (80-96); MONOCYTES # (AUTO) 0.8 /CMM (0.1-1.30); MONOCYTES % (AUTO) 7.7 % (2.0-12.0); NEUTROPHILS % (AUTO) 82.5 % (43.0-81.0); PLATELET COUNT (AUTO) 214 /CMM (150-450); RED BLOOD CELL COUNT(AUTO) 4.09 MIL/uL (4.5-6.0); WHITE BLOOD COUNT (AUTO) 9.8 K/uL (4.3-11.0)
[2019-05-22] MEDS ORDERED: PIPERACILLIN /TAZOBACTAM 3.375 G in IV D5W 50 ML IV ONE (07:30)
[2019-05-22] MEDS ORDERED: IV NS 0.9% 500 ML BAG IV ONE (07:30)
[2019-05-22] MEDS ORDERED: VANCOMYCIN 1 GM in IV D5W 250 ML IV ONE (07:30)
--- NOTE | 2019-05-22 07:30 | NUR ---
BIBRA60. C/O SOB X 2WEEKS WORST TODAY. O2 SAT 89% W/O O2. TACHYPNEIC, GASPING, BILAT LOWER EXTREMITY EDEMA, TO ER BED 1, OXYGEN APPLIED 92 ON 2L NC. CONNECTED TO BANDAGE WRAPPING MACHINE OPERATOR. BLOOD DRAWN AND SENT TO LAB. ORDERS RECEIVED A CARRIED OUT.
[2019-05-22 07:46] LABS: APPEARANCE,URINE SL CLOUDY (CLEAR); BILIRUBIN,URINE NEGATIVE (NEGATIVE); BLOOD, URINE LARGE Ery/uL (NEGATIVE); COLOR,URINE YELLOW (YELLOW); KETONES,URINE NEGATIVE (NEGATIVE); LEUKOCYTE ESTERASE ,URINE MODERATE (NEGATIVE); NITRITE, URINE POSITIVE (NEGATIVE); PH,URINE 7.5 (5.0-8.0); PROTEIN,URINE TRACE mg/dl (NEGATIVE); UGLUCOSE NEGATIVE (NEGATIVE); UROBILINOGEN,URINE 0.2 EU/dL (0.2)
--- NOTE | 2019-05-22 08:01 | NUR ---
PATIENT NOTED WITH PIZANO CATHETER, PER SHIFT CHANGE REPORT, PATIENT HAS PIZANO CATH PRIOR TO ADMISSION
--- NOTE | 2019-05-22 08:01 | NUR ---
PATIENT RECEIVED RESTING INSIDE ROOM. CONNECTED TO MONITOR. A/O X 2. O2 AT 92% IN 2L, INCREASED O2 TO 4L/MIN VIA NC. O2 SAT 94%. IVF RUNNING ORDERED. NO ACUTE DISTRESS AT THIS TIME. WILL CONTINUE TO MONITOR ACCORDINGLY
[2019-05-22 08:08] LABS: BACTERIA,URINE 2+ /HPF (None Seen); SQUAMOUS EPITHELIAL CELL,UR 0-2 /HPF (None Seen); WBC,URINE 21-50 /HPF (0-3)
[2019-05-22 08:16] LABS: CALCIUM, SERUM 9.4 mg/dL (8.5-10.1); CARBON DIOXIDE 33 mmol/L (21-32); CHLORIDE 108 mmol/L (98-107); CREATININE 0.7 mg/dL (0.6-1.3); GLUCOSE 118 mg/dL (74-106); SODIUM SERUM 145 mmol/L (136-145); UREA NITROGEN, BLOOD 18 mg/dL (7-18)
[2019-05-22 08:29] LABS: BILIRUBIN,TOTAL 0.6 mg/dL (0.2-1.0)
[2019-05-22 08:30] LABS: ALANINE AMINOTRANSFERASE 55 U/L (12-78); ALBUMIN 2.8 g/dL (3.4-5.0); ALKALINE PHOSPHATASE 148 U/L (46-116); ASPARTATE AMINOTRANSFERASE 87 U/L (15-37); BILIRUBIN,DIRECT 0.2 mg/dL (0.0-0.2); TOTAL PROTEIN, SERUM 7.1 g/dL (6.4-8.2)
--- NOTE | 2019-05-22 09:03 | NUR ---
ASHU, CHEMICAL RESEARCH WORKER FROM [facility] AT BEDSIDE
--- NOTE | 2019-05-22 09:08 | NUR ---
DR TERESA AT BEDSIDE
[2019-05-22] MEDS ORDERED: FURO20TA4 PO (10:05)
[2019-05-22] MEDS ORDERED: POTA10CA43 PO (10:05)
[2019-05-22] MEDS ORDERED: MULT1TAB73 PO (10:11)
[2019-05-22] MEDS ORDERED: CHOL200059 PO (10:11)
[2019-05-22] MEDS ORDERED: TYL2T PO (10:11)
[2019-05-22] MEDS ORDERED: HYDR-4384 PO (10:11)
[2019-05-22] MEDS ORDERED: BISA-79 RC (10:11)
--- NOTE | 2019-05-22 10:28 | NUR ---
PLACED CALL TO 3W AND GAVE REPORT TO AB DURAND
--- NOTE | 2019-05-22 11:01 | NUR ---
PATIENT TRANSFERRED TO [facility] VIA ACLS PROTOCOL. NO ACUTE DISTRESS. NO FACIAL GRIMACE. PIZANO IN PLACE AND DRAINING. RECEIVING RN AT BEDSIDE.
[2019-05-22] MEDS ORDERED: BISACODYL (5 MG) 5 MG TABLET.DR PO PRN (12:00)
[2019-05-22] MEDS ORDERED: MAG HYDROX/AL HYDROX/SIMETH 30 ML UDC PO PRN (12:00)
[2019-05-22] MEDS ORDERED: ALBUTEROL FS 2.5 MG/0.5 ML VIAL.NEB NEB PRN (12:00)
[2019-05-22] MEDS ORDERED: IPRATROPIUM NEB FS 0.5 MG/2.5 ML AMPUL.NEB NEB PRN (12:00)
[2019-05-22] MEDS ORDERED: ONDANSETRON HCL/PF 4 MG/2 ML VIAL IVP PRN (12:00)
[2019-05-22] MEDS ORDERED: MAGNESIUM HYDROXIDE 30 ML UDC PO PRN (12:00)
[2019-05-22] MEDS ORDERED: ACETAMINOPHEN 325 MG TABLET PO PRN (12:00)
[2019-05-22] MEDS ORDERED: ALBUTEROL FS 2.5 MG/3 ML VIAL.NEB IH PRN (12:00)
[2019-05-22] MEDS ORDERED: ZOLPIDEM TARTRATE 5 MG TABLET PO PRN (12:00)
[2019-05-22] MEDS ORDERED: HYDROCODONE/APAP 5/325MG 1 EACH TABLET PO PRN (12:00)
[2019-05-22] MEDS: IV NS 0.9% 1,000 ML IV PRN (12:10)
[2019-05-22] MEDS: ENOXAPARIN SODIUM 40 MG/0.4 ML DISP.SYRIN SQ SCH (12:11)
--- NOTE | 2019-05-22 12:37 | NUR ---
TELE/RN - ADMITTING NOTES PATIENT CAME IN FROM ER C/O SOB WITH ADMITTING DIAGNOSIS OF PNA. PATIENT IS A/O X3. DENIES PAIN. SATURATING AT 94% ON 4L NC. BP 140/75 HR 95 RR 20. PATIENT SHOWS NO SIGNS OF ACUTE DISTRESS. TELEGRAPH OFFICE MANAGER DILLIAN AT THE BEDSIDE. PIZANO CATHETER PRESENT ON ADMISSION, TELEGRAPH OFFICE MANAGER STATED NEW PIZANO WAS INSERTED 2 WEEKS AGO. PICTURES TAKEN AND DOCUMENTED. WOUND AND DIETARY NOTIFIED FOR RICKIE OF 11 AND SKIN BREAKDOWN. FALL AND ASPIRATION PRECAUTIONS INITIATED. ADMISSION ORDERS NOTED AND CARRIED OUT. WILL CONTINUE TO MONITOR.
[2019-05-22] MEDS ORDERED: CEFTRIAXONE 1 G in IV D5W 50 ML IV SCH (13:00)
[2019-05-22] MEDS ORDERED: AZITHROMYCIN 500 MG in IV D5W 250 ML IV SCH (14:00)
[2019-05-22] MEDS: DIAZEPAM 5 MG TABLET PO SCH (16:57)
--- NOTE | 2019-05-22 17:45 | NUR ---
TELE/RN CLOSING NOTE PATIENT IS RESTING IN BED, A/O X3, VITAL SIGNS WNL AND SATURATING >90% ON 4L NC. ALL DUE MEDS GIVEN AND BREATHING TREATMENT GIVEN BY RT PRN. TELE MONITOR SR/ST WITH PACs. IV ON LEFT HAND CLEAN AND PATENT. CONTINUE FALL AND ASPIRATION PRECAUTIONS. BED IS ON LOWEST POSITION, SIDE RAILS X2 IN UPRIGHT POSITION. CALL LIGHT IS WITHIN REACH. WILL ENDORSE TO DERMATOLOGY NURSE.
[2019-05-22 20:01] VITALS: BP 116/60
--- NOTE | 2019-05-22 20:30 | NUR ---
MEAT CLERK NOTES RECEIVED ON BED A/O X2-3,BREATHING NON LABORED,O2 IN USED AT 4L/NC TO KEEP O2 SAT ABOVE 90%,IVF NS AT 75ML/HR RATE IN PROGRESS VIA IV PUMP,SITE PATENT ON LEFT HAND.WEAK ON LEFT AR,CONTRACTED RIGHT ARM.PIZANO CATH IN PLACE DRAINING YELLOWISH OUTPUT.REPOSITION PER PROTOCOL,CALL LIGHT IN REACH,WILL CONTINUE TO MONITOR STATUS.
[2019-05-22] MEDS: MIRTAZAPINE 15 MG TABLET PO SCH (21:45)
[2019-05-22 22:00] VITALS: BP 116/60
[2019-05-23] VITALS (21 sets, daily range): BP systolic 76–123; BP diastolic 33–90
[2019-05-23] MEDS: IV NS 0.9% 1,000 ML IV PRN ×2 (00:30→16:09)
--- NOTE | 2019-05-23 06:35 | NUR ---
AUTOM[employer]BILE CLUB MEMBERSHIP SALES AGENT NOTES FAIRLY RESTED,IVF INFUSING,SITE REMAINS PATENT.NO EPISODE OF SOB,REPOSITION PER PROTOCOL.ON ISOFLEX BED FOR SKIN MANAGEMENT.DNT STATUS.IN NO ACUTE DISTRESS.WILL ENDORSE TO DAY NURSE FOR SIMONE.
[2019-05-23 07:17] LABS: BASOPHILS % (AUTO) 0.6 % (0.0-2.0); EOSINOPHILS % (AUTO) 10.9 % (0.0-6.0); HEMATOCRIT 36 % (39-51); HEMOGLOBIN 11.8 g/dL (13.5-17.5); LYMPHOCYTES # (AUTO) 0.5 /CMM (0.8-4.8); LYMPHOCYTES % (AUTO) 12.1 % (20.0-44.0); MEAN CORPUSCULAR HGB CONC 32 g/dl (31.0-36.0); MEAN CORPUSCULAR VOLUME 97 fL (80-96); MONOCYTES # (AUTO) 0.5 /CMM (0.1-1.30); MONOCYTES % (AUTO) 11.6 % (2.0-12.0); NEUTROPHILS # (AUTO) 2.7 /CMM (1.8-8.9); NEUTROPHILS % (AUTO) 64.8 % (43.0-81.0); PLATELET COUNT (AUTO) 176 /CMM (150-450); RED BLOOD CELL COUNT(AUTO) 3.75 MIL/uL (4.5-6.0); WHITE BLOOD COUNT (AUTO) 4.2 K/uL (4.3-11.0)
[2019-05-23 07:24] LABS: CALCIUM, SERUM 8.6 mg/dL (8.5-10.1); CARBON DIOXIDE 33 mmol/L (21-32); CHLORIDE 108 mmol/L (98-107); CREATININE 0.5 mg/dL (0.6-1.3); GLUCOSE 98 mg/dL (74-106); MAGNESIUM 1.9 mg/dL (1.8-2.4); PHOSPHORUS 3.8 mg/dL (2.5-4.9); POTASSIUM 3.9 mmol/L (3.5-5.1); SODIUM SERUM 145 mmol/L (136-145); UREA NITROGEN, BLOOD 15 mg/dL (7-18)
--- NOTE | 2019-05-23 07:24 | NUR ---
SUPERVISOR WIRE ROPE FABRICATION OPENING NOTES RECEIVED PATIENT AWAKE IN BED IN NO ACUTE SIGNS OF DISTRESS. HOB ELEVATED. A/O X2-. VERBALLY RESPONSIVE, DENIES PAIN OR ANY DISCOMFORTS AT THIS TIME. ON SUPPLEMENTAL O2 4L/PM VIA N/C, TOLERATING WELL. ON TELE-MONITORING WITH CURRENT READING OF SR WITH PAC;S ,WITH HR ON THE 7-0'S, NO C/O CARDIAC DISTRESS VOICED. IV ACCESS ON LEFT HAND INTACT AND PATENT, IVF OF NS AT 75ML/HR INFUSING WELL, NO S/S OF INFILTRATIONS NOTED. PIZANO CATH IN PLACE DRAINING CLEAR YELLOWISH OUTPUT TO URINARY BAG. SAFETY MEASURES IN PLACE. BED IN LOW LOCKED POSITION WITH SR UP X2. CALL LIGHT IN REACH. WILL CONTINUE TO MONITOR PT ACCORDINGLY.
[2019-05-23 07:35] LABS: CHOLESTEROL 156 mg/dL (<200); HDL CHOLESTEROL 47 mg/dL (40-60); LDL 90 mg/dL (0-99); THYROID STIMULATING HORMONE 2.082 uIU/mL (0.358-3.74); TRIGLYCERIDES 80 mg/dL (30-150)
[2019-05-23] MEDS: DIAZEPAM 5 MG TABLET PO SCH (09:18)
[2019-05-23] MEDS: BACLOFEN (10 MG) 10 MG TABLET PO SCH (09:18)
[2019-05-23] MEDS: ENOXAPARIN SODIUM 40 MG/0.4 ML DISP.SYRIN SQ SCH (09:19)
[2019-05-23 10:43] LABS: ABG BASE EXCESS 2.6 mmol/L; ABG OXYGEN SATURATION 89.9 % (92.0-98.5); ABG PCO2 90.9 mmHg (35.0-45.0); ABG PH 7.187 (7.350-7.450); ABG PO2 70.4 mmHg (75.0-100.0); AaDO2 139.7 mmHg; COHb 0.9 % (0.5-1.5); MetHb 0.4 % (0.0-1.5); O2Hb 88.7 % (94.0-97.0); SITE, ABG Right Radial; VENT MODE, BG N/C 44%
--- NOTE | 2019-05-23 10:45 | NUR ---
RN NOTES AT 1023 WHILE PATIENT IS BEING CHANGED, PT SUDDENLY BECOME PALE, LETHARGIC AND LESS ALERT THAN USUAL. HOB ELEVATED. V/S TAKEN WITH THE FF RESULTS; BP 153/72, P 106, R 30, T 97.8F, BS 159MGDL AND SP02 87-88%. PT PLACED ON NON-REBREATHER MASK, SP02 WENT UP RO 94%. GARRETT LUCIO IS IN UNIT AND EVALUATED PT WITH ORDERED TO DO STAT ABG, EKG AND CXR. PT NOTED ALSO WITH SVT ON TELE MONITOR. GARRETT LUICO MADE AWARE WITH ORDER TO TRANSFER PT TO ICU. WILL CONTINUE TO MONITOR
[2019-05-23] MEDS ORDERED: DILTIAZEM HCL IV 125 MG in IV NS 0.9% 100 ML IV ONE (11:00)
[2019-05-23] MEDS ORDERED: DILTIAZEM HCL 25 MG IV IV ONE (11:00)
--- NOTE | 2019-05-23 11:05 | NUR ---
PATIENT TRANSFERRED FROM [facility] FLOOR SECONDARY TO ACUTE RESPIRATORY FAILURE SECONDARY TO PNA. ABG SHOWS SEVERE RESPIRATORY ACIDOSIS WITH PH 7.1/ PCO2 90. PER MD PATIENT CODE STATUS DNR BUT YES TO INTUBATION. PATIENT FOR ACUTE BIPAP MANAGEMENT AT THIS TIME.
--- NOTE | 2019-05-23 11:15 | NUR ---
PATIENT SEEN AND EXAMINED BY DR. CHIU- AGGRESSIVE NT SUCTIONING BY RT PRIOR TO BIPAP PLACEMENT. OBTAINED MODERATE AMOUNT OF THICK, YELLOW SECRETIONS. KEPT HOB ELEVATED.
--- NOTE | 2019-05-23 11:20 | NUR ---
RT NOTE PT PLACED ON BIPAP AT THIS TIME. MASK SECURED W/ MEPILIX. NT SUCTION DONE, MODERATE THICK WHITE YELLOW SECRETIONS NOTED. ALARMS ON AND AUDIBLE. NO SOB NOTED. WILL MONITOR CLOSELY. Addendum: 05/23/19 at 1834 by EVELINE ENCINAS RT Amended: Links added.
--- NOTE | 2019-05-23 11:28 | NUR ---
RN NOTES PATIENT TRANSFERRED TO ICU ROOM 262-1 VIA BED WITH ACLS PROTOCOL. PT MORE ALERT, SMILING AND MORE RESPONSIVE WHILE BEING TRANSFERRED TO ICU. BEDSIDE REPORT GIVEN TO LADARIUS TODD AND LADARIUS MACEDO.
[2019-05-23] MEDS ORDERED: methylPREDNISolone SOD SUCC 40 MG/ML VIAL IV ONE (11:30)
[2019-05-23] MEDS ORDERED: FEE PK DOSING 1 MIN EA MC ONE (11:30)
--- NOTE | 2019-05-23 11:40 | NUR ---
PATIENT SR WITH OCCASIONAL PAC'S ON TRANSFER. ORDERS NOTED FOR CARDIZEM 10 MG IV AND DRIP PER MARYBETH LUCIO. SPOKE TO [facility], ORALIA TO HOLD CARDIZEM . VERIFIED WITH DR. MARINO, PER MD BARTON TO DC CARDIZEM.
[2019-05-23] MEDS: IPRATROPIUM NEB FS 0.5 MG/2.5 ML AMPUL.NEB NEB SCH ×4 (12:00→23:37)
[2019-05-23] MEDS: ALBUTEROL FS 2.5 MG/0.5 ML VIAL.NEB NEB SCH ×4 (12:00→23:37)
[2019-05-23] MEDS: ACETYLCYSTEINE 10% SOLN 400 MG/4 ML VIAL NEB SCH ×3 (12:00→23:37)
[2019-05-23 12:08] LABS: CALCIUM, SERUM 8.9 mg/dL (8.5-10.1); CREATININE 0.6 mg/dL (0.6-1.3); POTASSIUM 3.7 mmol/L (3.5-5.1)
[2019-05-23 12:11] LABS: BASOPHILS % (AUTO) 0.2 % (0.0-2.0); EOSINOPHILS % (AUTO) 4.7 % (0.0-6.0); HEMATOCRIT 40 % (39-51); HEMOGLOBIN 12.6 g/dL (13.5-17.5); LYMPHOCYTES # (AUTO) 0.2 /CMM (0.8-4.8); LYMPHOCYTES % (AUTO) 4.4 % (20.0-44.0); MEAN CORPUSCULAR HGB CONC 32 g/dl (31.0-36.0); MEAN CORPUSCULAR VOLUME 97 fL (80-96); MONOCYTES # (AUTO) 0.4 /CMM (0.1-1.30); MONOCYTES % (AUTO) 7.1 % (2.0-12.0); NEUTROPHILS # (AUTO) 4.7 /CMM (1.8-8.9); NEUTROPHILS % (AUTO) 83.6 % (43.0-81.0); PLATELET COUNT (AUTO) 175 /CMM (150-450); RED BLOOD CELL COUNT(AUTO) 4.07 MIL/uL (4.5-6.0); WHITE BLOOD COUNT (AUTO) 5.6 K/uL (4.3-11.0)
[2019-05-23 12:14] LABS: ALBUMIN 2.5 g/dL (3.4-5.0); BILIRUBIN,TOTAL 0.3 mg/dL (0.2-1.0); MAGNESIUM 1.9 mg/dL (1.8-2.4); PHOSPHORUS 4.2 mg/dL (2.5-4.9); TOTAL PROTEIN, SERUM 6.7 g/dL (6.4-8.2)
[2019-05-23] MEDS: PIPERACILLIN /TAZOBACTAM 3.375 G in IV D5W 50 ML IV SCH ×2 (12:42→18:46)
[2019-05-23 13:18] LABS: ABG BASE EXCESS 2.6 mmol/L; ABG OXYGEN SATURATION 99.1 % (92.0-98.5); ABG PCO2 69.2 mmHg (35.0-45.0); ABG PH 7.272 (7.350-7.450); ABG PO2 313.1 mmHg (75.0-100.0); AaDO2 330.7 mmHg; COHb 0.2 % (0.5-1.5); MetHb 0.4 % (0.0-1.5); O2Hb 98.5 % (94.0-97.0); SITE, ABG Right Radial; VENT MODE, BG S/T 15/5 RR14 100%
[2019-05-23] MEDS ORDERED: INSULIN REGULAR, HUMAN 100 UNIT/ML 3 ML VIAL SQ PRN (14:30)
[2019-05-23] MEDS ORDERED: NOREPINEPHRINE 8 MG in IV D5W 500 ML IV PRN (14:30)
[2019-05-23] MEDS ORDERED: DEXTROSE 50%-WATER 50 ML DISP.SYRIN IV PRN (14:30)
--- NOTE | 2019-05-23 15:00 | NUR ---
UPDATED PATIENT SISTER SAROJ/NOELLE REGARDING PATIENT STATUS. PER NOELLE-ORALIA TO GIVE INFORMATION TO EMLBA CENTRAL OFFICE REPAIRER SUPERVISOR.
[2019-05-23 17:33] LABS: ABG BASE EXCESS 1.8 mmol/L; ABG OXYGEN SATURATION 98.6 % (92.0-98.5); ABG PCO2 45.4 mmHg (35.0-45.0); ABG PH 7.394 (7.350-7.450); AaDO2 214.9 mmHg; COHb 0.2 % (0.5-1.5); MetHb 0.6 % (0.0-1.5); O2Hb 97.8 % (94.0-97.0); SITE, ABG Right Radial; VENT MODE, BG S/T 20/5 RR14 60%
--- NOTE | 2019-05-23 18:00 | NUR ---
ABG RESULTS GIVEN TO DR. CHIU. TO KEEP PATIENT OVERNIGHT. FOR WEANING IN AM.
[2019-05-23] MEDS: BLOOD SUGAR DIAGNOSTIC 1 EACH STRIP IN SCH ×2 (18:47→23:57)
--- NOTE | 2019-05-23 19:30 | NUR ---
RN NOTE: RECEIVED PT ON BED LETHARGIC WITH NO APPARENT DISTRESS NOTED. RESPONDS TO VERBAL AND TACTILE STIMULI. ON BIPAP, SETTINGS ORDERED. NO SOB NOTED. SATURATING WELL. NO FACIAL GRIMACING OR ANY SIGNS OF PAIN NOTED. SINUS RHYTHM ON TELE MONITOR HR 69 BPM. LEFT UPPER ARM MIDLINE AND LEFT HAND #20 INTACT AND PATENT WITH NS RUNNING AT 75ML/HR. PIZANO CATH INTACT AND DRAINING WELL. KEPT CLEAN, DRY AND COMFORTABLE. SAFETY AND FALL PRECAUTIONS OBSERVED AND MAINTAINED. WILL CONTINUE TO MONITOR PT.
[2019-05-23] MEDS: VANCOMYCIN 0.75 GM in IV D5W 250 ML IV SCH (19:50)
[2019-05-23] MEDS: MIRTAZAPINE 15 MG TABLET PO SCH (21:03)
[2019-05-24] VITALS (25 sets, daily range): BP systolic 95–154; BP diastolic 51–91
[2019-05-24] MEDS: PIPERACILLIN /TAZOBACTAM 3.375 G in IV D5W 50 ML IV SCH ×2 (00:02→05:13)
[2019-05-24] MEDS: IPRATROPIUM NEB FS 0.5 MG/2.5 ML AMPUL.NEB NEB SCH ×6 (03:37→23:03)
[2019-05-24] MEDS: ALBUTEROL FS 2.5 MG/0.5 ML VIAL.NEB NEB SCH ×6 (03:37→23:03)
[2019-05-24 04:45] LABS: BASOPHILS % (AUTO) 0.1 % (0.0-2.0); EOSINOPHILS % (AUTO) 0.1 % (0.0-6.0); HEMATOCRIT 33 % (39-51); HEMOGLOBIN 10.9 g/dL (13.5-17.5); LYMPHOCYTES # (AUTO) 0.3 /CMM (0.8-4.8); MEAN CORPUSCULAR HGB CONC 33 g/dl (31.0-36.0); MEAN CORPUSCULAR VOLUME 96 fL (80-96); MONOCYTES # (AUTO) 0.3 /CMM (0.1-1.30); MONOCYTES % (AUTO) 6.8 % (2.0-12.0); NEUTROPHILS # (AUTO) 3.4 /CMM (1.8-8.9); PLATELET COUNT (AUTO) 193 /CMM (150-450); RED BLOOD CELL COUNT(AUTO) 3.39 MIL/uL (4.5-6.0)
[2019-05-24 05:24] LABS: THYROID STIMULATING HORMONE 0.384 uIU/mL (0.358-3.74)
[2019-05-24] MEDS: BLOOD SUGAR DIAGNOSTIC 1 EACH STRIP IN SCH ×4 (05:26→21:54)
[2019-05-24 05:53] LABS: CALCIUM, SERUM 8.6 mg/dL (8.5-10.1); CARBON DIOXIDE 28 mmol/L (21-32); CHLORIDE 107 mmol/L (98-107); CREATININE 0.5 mg/dL (0.6-1.3); GLUCOSE 113 mg/dL (74-106); MAGNESIUM 1.7 mg/dL (1.8-2.4); PHOSPHORUS 3.5 mg/dL (2.5-4.9); POTASSIUM 4.1 mmol/L (3.5-5.1); SODIUM SERUM 142 mmol/L (136-145); UREA NITROGEN, BLOOD 17 mg/dL (7-18)
[2019-05-24] MEDS: IV NS 0.9% 1,000 ML IV PRN (06:10)
--- NOTE | 2019-05-24 06:37 | NUR ---
RN NOTE: NO CHANGES NOTED THROUGHOUT THE SHIFT. NO APPARENT DISTRESS NOTED. NO FACIAL GRIMACING OR ANY SIGNS OF PAIN NOTED. ON BIPAP, FIO2 40%, PT ABLE TO TOLERATE WELL. NO SOB NOTED. SINUS RHYTHM ON TELE MONITOR HR 64BPM. LEFT UPPER ARM MIDLINE INTACT AND PATENT WITH NS RUNNING AT 75ML/HR. PIZANO CATH INTACT, DRAINED 380 ML OF URINE OUTPUT. KEPT CLEAN, DRY AND COMFORTABLE. SAFETY AND FALL PRECAUTIONS OBSERVED AND MAINTAINED. WILL ENDORSE TO DAY SHIFT RN FOR CONTINUITY OF CARE.
[2019-05-24] MEDS: ACETYLCYSTEINE 10% SOLN 400 MG/4 ML VIAL NEB SCH ×3 (07:52→23:03)
--- NOTE | 2019-05-24 08:22 | NUR ---
WOUND CARE CONSULT: PT PRESENTS WITH 4+ PITTING EDEMA TO FEET, SCARRING TO SACRAL/BUTTOCKS AREA AND TO LEFT BACK, PRESENT ON ADMISSION. RECOMMENDATIONS MADE FOR SKIN PROTECTION. DISCUSSED WITH NURSING STAFF. WILL SEE PRN. PT ON [facility] BED. IN AGREEMENT WITH PLAN OF CARE. Addendum: 05/24/19 at 0824 by KYE BRIGGS WNDNU Amended: Links added.
[2019-05-24] MEDS: VANCOMYCIN 0.75 GM in IV D5W 250 ML IV SCH ×2 (08:32→20:45)
[2019-05-24] MEDS: BACLOFEN (10 MG) 10 MG TABLET PO SCH (08:32)
[2019-05-24] MEDS: ENOXAPARIN SODIUM 40 MG/0.4 ML DISP.SYRIN SQ SCH (08:40)
[2019-05-24 09:07] LABS: ABG OXYGEN SATURATION 93.3 % (92.0-98.5); ABG PCO2 48.5 mmHg (35.0-45.0); ABG PH 7.362 (7.350-7.450); ABG PO2 71.9 mmHg (75.0-100.0); AaDO2 70.5 mmHg; COHb 0.2 % (0.5-1.5); MetHb 0.3 % (0.0-1.5); O2Hb 92.8 % (94.0-97.0); SITE, ABG Right Radial; VENT MODE, BG N/C @2LPM
--- NOTE | 2019-05-24 11:12 | NUR ---
RN NOTE 0715: Received patient is alert, able to comprehend. Aphasic, able to mouth words. On Bipap, titrated off Bipap, placed on 2 LPM of O2 via NC. DEE midline intact, IVF infusing as ordered. Stack cath intact, noted with cloudy memo urine drained to BSD. Patient with 4 extremities contraction. Repositioned for comfort. 0730: 97% on 2LPM, Tried 1 LPM then room air but noted with 88% sat, will keep on 2LPM for now. 0745: S/E by wound care consult. New orders noted. 0900: S/E by Dr. Gavin, ABG resulted, MD aware, will keep on 2 LPM per MD. Caregiver at bedside, aware for the POC. 1100: No any significant changes noted at this time. Kept clean, warm and dry. Turned and repositioned q2. No any ASE from ATB therapy for his PNA. Able to cough good, no need to suction via NT.
[2019-05-24] MEDS ORDERED: DEXTROSE 50%-WATER 50 ML DISP.SYRIN IV PRN (11:30)
[2019-05-24] MEDS: PIPERACILLIN /TAZOBACTAM 3.375 G in IV D5W 100 ML IV SCH ×2 (12:41→20:44)
[2019-05-24] MEDS: Magnesium 1GM/D5W 100ML PREMIX 100 ML IV SCH ×2 (12:42→14:37)
--- NOTE | 2019-05-24 18:50 | NUR ---
RN NOTE No any significant changes noted. No respiratory distress noted at this time. Remained on 2 LPM of O2 via NC, tolerated well. Kept HOB elevated. No productive cough noted. Tolerated diet. Stack cath intact, noted with pale yellow urine drained to BSD. With DEE midline intact.
--- NOTE | 2019-05-24 20:23 | NUR ---
RN NOTE: PT ON BED LETHARGIC WITH NO APPARENT DISTRESS NOTED. RESPONDS TO VERBAL AND TACTILE STIMULI. ON NC@4L, SETTINGS ORDERED. NO SOB NOTED. SATURATING WELL. NO FACIAL GRIMACING OR ANY SIGNS OF PAIN NOTED. SINUS RHYTHM ON TELE MONITOR HR 89 BPM. LEFT UPPER ARM MIDLINE AND LEFT HAND #20 INTACT AND PATENT WITH NS RUNNING AT 75ML/HR. PIZANO CATH INTACT AND DRAINING WELL. KEPT CLEAN, DRY AND COMFORTABLE. SAFETY AND FALL PRECAUTIONS OBSERVED AND MAINTAINED. WILL CONTINUE TO MONITOR PT.
[2019-05-24] MEDS: MIRTAZAPINE 15 MG TABLET PO SCH (21:54)
[2019-05-25] VITALS (27 sets, daily range): BP systolic 89–127; BP diastolic 46–82
[2019-05-25] MEDS: IV NS 0.9% 1,000 ML IV PRN ×2 (02:53→16:27)
[2019-05-25] MEDS: ALBUTEROL FS 2.5 MG/0.5 ML VIAL.NEB NEB SCH ×5 (03:22→20:05)
[2019-05-25] MEDS: IPRATROPIUM NEB FS 0.5 MG/2.5 ML AMPUL.NEB NEB SCH ×5 (03:22→20:05)
[2019-05-25] MEDS: PIPERACILLIN /TAZOBACTAM 3.375 G in IV D5W 100 ML IV SCH ×3 (04:10→20:39)
[2019-05-25 04:51] LABS: CALCIUM, SERUM 7.8 mg/dL (8.5-10.1); CARBON DIOXIDE 30 mmol/L (21-32); CHLORIDE 109 mmol/L (98-107); CREATININE 0.5 mg/dL (0.6-1.3); GLUCOSE 127 mg/dL (74-106); POTASSIUM 3.8 mmol/L (3.5-5.1); SODIUM SERUM 143 mmol/L (136-145); UREA NITROGEN, BLOOD 40 mg/dL (7-18)
--- NOTE | 2019-05-25 06:26 | NUR ---
RN CLOSING NOTE: PT ON BED LETHARGIC WITH NO APPARENT DISTRESS NOTED. RESPONDS TO VERBAL AND TACTILE STIMULI. ON NC@2L, SETTINGS ORDERED. NO SOB NOTED. SATURATING WELL. NO FACIAL GRIMACING OR ANY SIGNS OF PAIN NOTED. SINUS RHYTHM ON TELE MONITOR HR 89 BPM. LEFT UPPER ARM MIDLINE AND LEFT HAND #20 INTACT AND PATENT WITH NS RUNNING AT 75ML/HR. PIZANO CATH INTACT AND DRAINING WELL. KEPT CLEAN, DRY AND COMFORTABLE. SAFETY AND FALL PRECAUTIONS OBSERVED AND MAINTAINED. WILL CONTINUE TO MONITOR PT.
--- NOTE | 2019-05-25 07:15 | NUR ---
CRYOGENICS ENGINEER INITIAL NOTES Rec'd pt on bed, A/O x 1, drowsy, not in any distress, denies any pain/discomfort. On NC at 2lpm, no SOB. SR/ST on telemonitor. Has IV line access on DEE midline w/ NS x 75 cc/hr infusing well, LH G20 SL, both patent & intact w/ no s/sx of infection/infiltration noted. Has FC draining to BSB w/ yellowish UOP. Safety precaution in place w/ bed in lowest & locked pos. Call light placed w/in reach. Will cont to monitor & attend pt needs.
[2019-05-25] MEDS: BLOOD SUGAR DIAGNOSTIC 1 EACH STRIP IN SCH ×4 (07:39→22:34)
[2019-05-25] MEDS: INSULIN REGULAR, HUMAN 100 UNIT/ML 3 ML VIAL SQ PRN ×3 (07:40→17:30)
[2019-05-25] MEDS: ACETYLCYSTEINE 10% SOLN 400 MG/4 ML VIAL NEB SCH ×2 (07:43→15:35)
[2019-05-25] MEDS: VANCOMYCIN 0.75 GM in IV D5W 250 ML IV SCH ×2 (08:10→19:19)
[2019-05-25] MEDS: BACLOFEN (10 MG) 10 MG TABLET PO SCH (08:10)
[2019-05-25] MEDS: ENOXAPARIN SODIUM 40 MG/0.4 ML DISP.SYRIN SQ SCH (08:11)
[2019-05-25] MEDS: Z GUARD REMEDY 2 OZ OINT TP PRN (08:11)
[2019-05-25 08:48] LABS: BASOPHILS % (AUTO) 0.4 % (0.0-2.0); EOSINOPHILS % (AUTO) 3.4 % (0.0-6.0); HEMATOCRIT 29 % (39-51); HEMOGLOBIN 9.7 g/dL (13.5-17.5); LYMPHOCYTES # (AUTO) 0.7 /CMM (0.8-4.8); LYMPHOCYTES % (AUTO) 7.8 % (20.0-44.0); MEAN CORPUSCULAR HGB CONC 33 g/dl (31.0-36.0); MEAN CORPUSCULAR VOLUME 96 fL (80-96); MONOCYTES # (AUTO) 0.7 /CMM (0.1-1.30); MONOCYTES % (AUTO) 7.8 % (2.0-12.0); NEUTROPHILS # (AUTO) 6.8 /CMM (1.8-8.9); NEUTROPHILS % (AUTO) 80.6 % (43.0-81.0); PLATELET COUNT (AUTO) 235 /CMM (150-450); RED BLOOD CELL COUNT(AUTO) 3.08 MIL/uL (4.5-6.0); WHITE BLOOD COUNT (AUTO) 8.4 K/uL (4.3-11.0)
--- NOTE | 2019-05-25 11:40 | NUR ---
Dr. Bowman updated about pt status, made him aware that pt placed on BIPAP at 1030 d/t tachypnea, decreased saturation.
--- NOTE | 2019-05-25 18:37 | NUR ---
DATABASE ADMINISTRATION ASSOCIATE CLOSING NOTES Pt resting on his bed, not in any distress but febrile - cooling measures provided. Increased NC at 3lpm, no SOB, deep suctioning done PRN c/o RT. SR/ST on telemonitor. IV line access on DEE midline w/ NS x 75 cc/hr infusing well, LH G20 SL, both kept patent & intact w/ no s/sx of infection/infiltration noted. FC draining to BSB w/ adequate yellowish UOP. Safety precaution kept in place w/ bed in lowest & locked pos. Call light placed w/in reach. Will endorse to PM RN for SIMONE.
[2019-05-25] MEDS: MIRTAZAPINE 15 MG TABLET PO SCH (22:34)
[2019-05-26] VITALS (26 sets, daily range): BP systolic 82–120; BP diastolic 37–85
[2019-05-26] MEDS: ALBUTEROL FS 2.5 MG/0.5 ML VIAL.NEB NEB SCH ×6 (00:22→20:12)
[2019-05-26] MEDS: IPRATROPIUM NEB FS 0.5 MG/2.5 ML AMPUL.NEB NEB SCH ×6 (00:22→20:12)
[2019-05-26] MEDS: ACETYLCYSTEINE 10% SOLN 400 MG/4 ML VIAL NEB SCH ×3 (00:22→15:19)
[2019-05-26] MEDS: IV NS 0.9% 1,000 ML IV PRN ×2 (04:18→17:05)
[2019-05-26] MEDS: PIPERACILLIN /TAZOBACTAM 3.375 G in IV D5W 100 ML IV SCH ×3 (04:35→19:46)
[2019-05-26 04:37] LABS: BASOPHILS # (AUTO) 0.1 /CMM (0.0-0.2); BASOPHILS % (AUTO) 0.6 % (0.0-2.0); EOSINOPHILS % (AUTO) 2.6 % (0.0-6.0); HEMATOCRIT 22 % (39-51); HEMOGLOBIN 7.3 g/dL (13.5-17.5); LYMPHOCYTES # (AUTO) 1.5 /CMM (0.8-4.8); LYMPHOCYTES % (AUTO) 16.8 % (20.0-44.0); MEAN CORPUSCULAR HGB CONC 33 g/dl (31.0-36.0); MEAN CORPUSCULAR VOLUME 97 fL (80-96); MONOCYTES # (AUTO) 0.8 /CMM (0.1-1.30); NEUTROPHILS # (AUTO) 6.3 /CMM (1.8-8.9); PLATELET COUNT (AUTO) 236 /CMM (150-450); RED BLOOD CELL COUNT(AUTO) 2.32 MIL/uL (4.5-6.0); WHITE BLOOD COUNT (AUTO) 8.8 K/uL (4.3-11.0)
[2019-05-26 04:45] LABS: CALCIUM, SERUM 7.7 mg/dL (8.5-10.1); CARBON DIOXIDE 28 mmol/L (21-32); CHLORIDE 112 mmol/L (98-107); CREATININE 0.5 mg/dL (0.6-1.3); GLUCOSE 107 mg/dL (74-106); MAGNESIUM 1.9 mg/dL (1.8-2.4); PHOSPHORUS 1.9 mg/dL (2.5-4.9); SODIUM SERUM 145 mmol/L (136-145); UREA NITROGEN, BLOOD 42 mg/dL (7-18)
--- NOTE | 2019-05-26 06:30 | NUR ---
PATIENT REMAINS IN NO ACUTE DISTRESS IN BED. PATIENT DID NOT HAVE ANY SIGNIFICANT CHANGE IN CONDITION DURING SHIFT. ALL NEEDS MET, ALL ORDERS CARRIED OUT. WILL ENDORSE CARE TO AM RN FOR CONTINUITY OF CARE.
[2019-05-26] MEDS: BLOOD SUGAR DIAGNOSTIC 1 EACH STRIP IN SCH ×4 (06:38→22:02)
--- NOTE | 2019-05-26 07:12 | NUR ---
HARDWARE DEVELOPER INITIAL NOTES Rec'd pt on bed, A/O x 1, drowsy, not in any distress, denies any pain/discomfort. On NC at 2lpm, no SOB. SR on telemonitor. Has IV line access on DEE midline w/ NS x 75 cc/hr infusing well, LH G20 SL, both patent & intact w/ no s/sx of infection/infiltration noted. Has FC draining to BSB w/ yellowish UOP. Safety precaution in place w/ bed in lowest & locked pos. Call light placed w/in reach. Will cont to monitor & attend pt needs. Addendum: 05/26/19 at 0837 by EMBER PATTON RN Correction. Pt noted to be lethargic, not drowsy.
[2019-05-26] MEDS: VANCOMYCIN 0.75 GM in IV D5W 250 ML IV SCH ×2 (07:32→19:46)
--- NOTE | 2019-05-26 07:35 | NUR ---
Pt seen & examined by Dr. Bangura, made aware re: drop in H/H, pt having episode of BM dark greenish large amount. Per MD, may order stool occult.
[2019-05-26] MEDS: ENOXAPARIN SODIUM 40 MG/0.4 ML DISP.SYRIN SQ SCH (08:25)
[2019-05-26] MEDS: BACLOFEN (10 MG) 10 MG TABLET PO SCH ×2 (08:25→08:36)
[2019-05-26] MEDS: Z GUARD REMEDY 2 OZ OINT TP PRN (08:25)
--- NOTE | 2019-05-26 08:36 | NUR ---
Per Dr. Bangura, may hold [employer] for now d/t low H/H.
--- NOTE | 2019-05-26 08:40 | NUR ---
Pt noted lethargic, notified Dr. Bangura w/ orders may do ABG. RT informed.
--- NOTE | 2019-05-26 08:50 | NUR ---
Pt placed on BIPAP 20/5, FiO2 40%, PS 15 c/o RT Ezio.
[2019-05-26] MEDS ORDERED: K PHOS NEUTRAL 250 MG TABLET PO ONE (09:00)
[2019-05-26 09:46] LABS: ABG BASE EXCESS -1.6 mmol/L; ABG OXYGEN SATURATION 96.2 % (92.0-98.5); ABG PCO2 37.6 mmHg (35.0-45.0); ABG PH 7.404 (7.350-7.450); ABG PO2 99.3 mmHg (75.0-100.0); AaDO2 142.7 mmHg; COHb 0.1 % (0.5-1.5); MetHb 1.1 % (0.0-1.5); SITE, ABG Left Radial; VENT MODE, BG BIPAP 20/5 PS15
[2019-05-26] MEDS: INSULIN REGULAR, HUMAN 100 UNIT/ML 3 ML VIAL SQ PRN ×2 (11:45→17:21)
[2019-05-26] MEDS ORDERED: Sodium Phosphate 7.5 MMOL in IV D5W 100 ML IV ONE (12:00)
--- NOTE | 2019-05-26 13:00 | NUR ---
Dr. Bowman updated about pt status. Made him aware that pt was placed on BIPAP this AM d/t being lethargic. ABG results while on BIPAP reviewed by MD mesa/ SONIA.
--- NOTE | 2019-05-26 17:30 | NUR ---
Dr. Arroyo updated about pt status.
--- NOTE | 2019-05-26 19:20 | NUR ---
CHANNEL MAN CLOSING NOTES Pt resting on his bed, not in any distress. Tolerating NC at 2lpm, no SOB, deep suctioning done PRN. SR/ST on telemonitor. IV line access on DEE midline w/ NS x 75 cc/hr infusing well, LH G20 SL, both kept patent & intact w/ no s/sx of infection/infiltration noted. FC draining to BSB w/ adequate yellowish UOP. Safety precaution kept in place w/ bed in lowest & locked pos. Call light placed w/in reach. Will endorse to PM RN for SIMONE.
--- NOTE | 2019-05-26 20:00 | NUR ---
INDUSTRIAL MACHINERY MECHANIC - NOTES - Pt resting in bed, not in any distress. Tolerating NC at 2lpm. SR/ST on telemonitor. IV line access on DEE midline w/ NS x 75 ml/hr infusing well, LH G20 SL, both kept patent & intact w/ no s/sx of infection/infiltration noted. FC draining to gravity w/ adequate yellowish UOP. Safety precaution kept in place w/ bed in lowest & locked pos. Will continue to monitor.
[2019-05-26] MEDS: MIRTAZAPINE 15 MG TABLET PO SCH (22:02)
[2019-05-27] VITALS (26 sets, daily range): BP systolic 91–130; BP diastolic 42–80
[2019-05-27] MEDS: ALBUTEROL FS 2.5 MG/0.5 ML VIAL.NEB NEB SCH ×7 (00:05→23:42)
[2019-05-27] MEDS: ACETYLCYSTEINE 10% SOLN 400 MG/4 ML VIAL NEB SCH ×4 (00:05→23:42)
[2019-05-27] MEDS: IPRATROPIUM NEB FS 0.5 MG/2.5 ML AMPUL.NEB NEB SCH ×7 (00:05→23:42)
[2019-05-27 04:18] LABS: BASOPHILS % (AUTO) 0.7 % (0.0-2.0); EOSINOPHILS % (AUTO) 4.5 % (0.0-6.0); LYMPHOCYTES # (AUTO) 0.9 /CMM (0.8-4.8); LYMPHOCYTES % (AUTO) 14.8 % (20.0-44.0); MEAN CORPUSCULAR HGB CONC 33 g/dl (31.0-36.0); MEAN CORPUSCULAR VOLUME 97 fL (80-96); MONOCYTES # (AUTO) 0.6 /CMM (0.1-1.30); MONOCYTES % (AUTO) 9.9 % (2.0-12.0); NEUTROPHILS # (AUTO) 4.3 /CMM (1.8-8.9); NEUTROPHILS % (AUTO) 70.1 % (43.0-81.0); PLATELET COUNT (AUTO) 151 /CMM (150-450); WHITE BLOOD COUNT (AUTO) 6.1 K/uL (4.3-11.0)
[2019-05-27] MEDS: PIPERACILLIN /TAZOBACTAM 3.375 G in IV D5W 100 ML IV SCH ×3 (04:18→20:51)
[2019-05-27 04:27] LABS: CALCIUM, SERUM 7.7 mg/dL (8.5-10.1); CARBON DIOXIDE 28 mmol/L (21-32); CHLORIDE 112 mmol/L (98-107); CREATININE 0.5 mg/dL (0.6-1.3); GLUCOSE 118 mg/dL (74-106); POTASSIUM 3.5 mmol/L (3.5-5.1); SODIUM SERUM 144 mmol/L (136-145); UREA NITROGEN, BLOOD 20 mg/dL (7-18)
[2019-05-27 04:37] LABS: HEMATOCRIT 18 % (39-51)
--- NOTE | 2019-05-27 06:00 | NUR ---
CRITICAL HEMOGLOBIN 6.0, RIVER CHRISTOPHER NOTIFIED, 1 UNIT PRBC ORDERED
--- NOTE | 2019-05-27 06:30 | NUR ---
BLOOD CONSENT OBTAINED FROM SISTER SAROJ COUSINS, TELEPHONE CONSENT WITNESSED BY INSTRUCTOR [employer] ED
[2019-05-27] MEDS: IV NS 0.9% 1,000 ML IV PRN (07:22)
[2019-05-27 07:38] LABS: EOSINOPHILS % (MANUAL) 7 % (0-4); LYMPHOCYTES % (MANUAL) 11 % (16-48); METAMYELOCYTES % 1 % (0-0); MONOCYTES % (MANUAL) 4 % (0-11.0); MYELOCYTES % 2 % (0-0); NEUTROPHILS % (MANUAL) 75 (42-76)
[2019-05-27] MEDS: BLOOD SUGAR DIAGNOSTIC 1 EACH STRIP IN SCH ×4 (07:56→22:39)
[2019-05-27] MEDS: VANCOMYCIN 0.75 GM in IV D5W 250 ML IV SCH ×2 (07:57→20:52)
[2019-05-27] MEDS: ENOXAPARIN SODIUM 40 MG/0.4 ML DISP.SYRIN SQ SCH (08:31)
[2019-05-27] MEDS: BACLOFEN (10 MG) 10 MG TABLET PO SCH (08:31)
--- NOTE | 2019-05-27 09:24 | NUR ---
RN NOTE 0715:Received patient A/Ox2, able to mouth words. With DEE midine intact, IVF infusing as ordered. Tolerated 2LPM of O2 via NC. Stack cath intact, noted with pale yellow urine drained to BSD. 0910: S/E by Dr. Gavin, With order for ABG. 0920: Phuong at bedside, updated re: patient's condition.
[2019-05-27 09:39] LABS: ABG BASE EXCESS -0.6 mmol/L; ABG OXYGEN SATURATION 91.8 % (92.0-98.5); ABG PCO2 39.2 mmHg (35.0-45.0); ABG PH 7.406 (7.350-7.450); ABG PO2 65.6 mmHg (75.0-100.0); AaDO2 87.8 mmHg; COHb 0.6 % (0.5-1.5); MetHb 1.1 % (0.0-1.5); O2Hb 90.2 % (94.0-97.0); SITE, ABG Left Radial
[2019-05-27] MEDS: PANTOPRAZOLE 40 MG VIAL IV SCH ×2 (10:23→21:05)
[2019-05-27] MEDS ORDERED: SODIUM BICARBONATE SYR 50 MEQ/50 ML DISP.SYRIN IV ONE (11:00)
[2019-05-27] MEDS ORDERED: BISACODYL SUPP (10 MG) 10 MG/SUPP.RECT SUPP.RECT RC PRN (16:30)
[2019-05-27 16:43] LABS: IRON, SERUM 28 ug/dl (50-175); TOTAL IRON BINDING CAPACITY 203 ug/dl (250-450)
[2019-05-27 16:56] LABS: FERRITIN 66 ng/mL (8-388)
[2019-05-27] MEDS: IV D5/ 0.9% NACL 1,000 ML IV PRN (17:06)
--- NOTE | 2019-05-27 18:13 | NUR ---
RN NOTE NO significant changes noted. No BM to send for OB yet. No S/S active bleeding noted at this time. Remained NPO. IVF infusing as ordered. MD aware for the edema on extremities. Kept BUE and BLE elevated. Remained on 2LPM of O2 via NC, tolerated at this time, did not need NT suction. Kept clean, warm and dry.
[2019-05-27] MEDS: MIRTAZAPINE 15 MG TABLET PO SCH (21:06)
[2019-05-28] VITALS (27 sets, daily range): BP systolic 84–155; BP diastolic 41–94
[2019-05-28] MEDS: IPRATROPIUM NEB FS 0.5 MG/2.5 ML AMPUL.NEB NEB SCH ×7 (03:30→23:03)
[2019-05-28] MEDS: ALBUTEROL FS 2.5 MG/0.5 ML VIAL.NEB NEB SCH ×7 (03:30→23:03)
[2019-05-28] MEDS: PIPERACILLIN /TAZOBACTAM 3.375 G in IV D5W 100 ML IV SCH ×3 (04:31→20:58)
[2019-05-28 04:58] LABS: CALCIUM, SERUM 7.9 mg/dL (8.5-10.1); CARBON DIOXIDE 28 mmol/L (21-32); CHLORIDE 113 mmol/L (98-107); CREATININE 0.4 mg/dL (0.6-1.3); GLUCOSE 123 mg/dL (74-106); POTASSIUM 3.1 mmol/L (3.5-5.1); SODIUM SERUM 145 mmol/L (136-145); UREA NITROGEN, BLOOD 9 mg/dL (7-18)
--- NOTE | 2019-05-28 06:50 | NUR ---
No significant changes noted. No BM to send for OB yet. No S/S active bleeding noted at this time. Remained NPO. IVF infusing as ordered. MD aware for the edema on extremities. Kept BUE and BLE elevated. Remained on 2LPM of O2 via NC, tolerated at this time. Kept clean, warm and dry.
[2019-05-28] MEDS: ACETYLCYSTEINE 10% SOLN 400 MG/4 ML VIAL NEB SCH ×3 (07:35→23:03)
[2019-05-28] MEDS: IV D5/ 0.9% NACL 1,000 ML IV PRN (07:58)
--- NOTE | 2019-05-28 08:00 | NUR ---
ICU/RN AM SHIFT INITIAL NOTES RECEIVED PT AWAKE IN BED WITH A BIG SMILE ON HIS FACE. PT ALERT, TRYING TO MOUTH WORDS. NO ACUTE CHANGE OF CONDITION NOTED. PT ALERT, ON 2L O2 VIA N/C SATURATING @ 95%, RESPIRATIONS EVEN & UNLABORED, LUNG SOUNDS CLEAR. ON TELE WITH SINUS RHYTHM, HR 79. WITH ON GOING IV INFUSION OF D5NS @ 75CC/HR MIDLINE PATENT WITH NO S/S OF INFECTION. PIZANO CATHETER INTACT WITH CLOUDY YELLOW URINE OUTPUT. PT NOTED WITH BILATERAL PITTING EDEMA (+3 TO 4) OFFLOADED ON PILLOWS. PT ON NPO EXCEPT MEDS. PT IS COMFORTABLE, SCHEDULED AM MEDS TO BE GIVEN. CL WITHIN REACHED AND SAFETY MAINTAINED. ON GOING MONITORING.
[2019-05-28] MEDS: BLOOD SUGAR DIAGNOSTIC 1 EACH STRIP IN SCH (08:17)
[2019-05-28] MEDS: PANTOPRAZOLE 40 MG VIAL IV SCH ×2 (08:51→21:00)
[2019-05-28] MEDS: BACLOFEN (10 MG) 10 MG TABLET PO SCH (08:51)
--- NOTE | 2019-05-28 10:45 | NUR ---
ICU/RN ROUNDS - DR. CONCEPCION UPDATED PT'S CONDITION. PT SEEN & EXAMINED BY DR. CONCEPCION, NO NEW ORDERS RECEIVED AT THIS TIME.
--- NOTE | 2019-05-28 11:12 | NUR ---
ICU/RN GLUCOSE MONITORING DISCUSSED WITH DR. CONCEPCION ABOUT PT'S BLOOD GLUCOSE TRENDS, ASKED IF ACHS MONITORING NEEDED TO BE CONTINUED. PER MD MAY DISCONTINUE. ORDER NOTED AND CARRIED.
[2019-05-28] MEDS: POTASSIUM CL. PREMIX PERIPHER. 50 ML IV SCH ×4 (11:19→17:45)
[2019-05-28] MEDS: VANCOMYCIN 0.75 GM in IV D5W 250 ML IV SCH (14:28)
--- NOTE | 2019-05-28 15:30 | NUR ---
ICU/RN ROUNDS - METAL FLOW COORDINATOR BROOKS UPDATED PT'S CONDITION, REPORTED NO ACTIVE BLEEDING NOTED, STOOL SPECIMEN PENDING FOR OB, PT HAD NO BOWEL MOVEMENT. PRN SUPPOSITORY GIVEN.
[2019-05-28 16:07] LABS: BASOPHILS # (AUTO) 0.1 /CMM (0.0-0.2); BASOPHILS % (AUTO) 2.3 % (0.0-2.0); EOSINOPHILS % (AUTO) 6.5 % (0.0-6.0); HEMATOCRIT 21 % (39-51); LYMPHOCYTES # (AUTO) 0.7 /CMM (0.8-4.8); LYMPHOCYTES % (AUTO) 15.8 % (20.0-44.0); MEAN CORPUSCULAR HGB CONC 33 g/dl (31.0-36.0); MEAN CORPUSCULAR VOLUME 96 fL (80-96); MONOCYTES # (AUTO) 0.3 /CMM (0.1-1.30); NEUTROPHILS # (AUTO) 3.2 /CMM (1.8-8.9); NEUTROPHILS % (AUTO) 68.4 % (43.0-81.0); PLATELET COUNT (AUTO) 153 /CMM (150-450); RED BLOOD CELL COUNT(AUTO) 2.22 MIL/uL (4.5-6.0); WHITE BLOOD COUNT (AUTO) 4.6 K/uL (4.3-11.0)
[2019-05-28 16:17] LABS: HEMOGLOBIN 6.9 g/dL (13.5-17.5)
[2019-05-28 16:43] LABS: BAND % (MANUAL) 8 % (0.0-5.0); EOSINOPHILS % (MANUAL) 6 % (0-4); LYMPHOCYTES % (MANUAL) 20 % (16-48); MONOCYTES % (MANUAL) 8 % (0-11.0); NEUTROPHILS % (MANUAL) 58 (42-76)
--- NOTE | 2019-05-28 17:08 | NUR ---
ICU/RN H & H SPOKE TO DR. CONCEPCION, REPORTED TRENDS OF RESULTS OF HGB 6.0 AND 6.9 WITH NO ACTIVE BLEEDING. RECEIVED TELEPHONE ORDER TO REPEAT H & H IN 4 HOURS (1999), THEN TO CALL MD WITH RESULTS. WILL BE ENDORSED TO PM NURSE.
--- NOTE | 2019-05-28 17:19 | NUR ---
ICU/RN AFTERNOON ROUNDS PT REFUSED PM CARE. WILL CHECK BACK LATER FOR ANY RESULT OF SUPPOSITORY GIVEN EARLIER. NO CHANGE OF CONDITION. MONITORING CONTINUED.
--- NOTE | 2019-05-28 19:17 | NUR ---
ICU/RN AM SHIFT END NOTES ALL NEEDS MET. NO ACUTE CHANGE OF CONDITION DURING THE SHIFT. SUPPOSITORY DID NOT PRODUCE BOWEL MOVEMENT. PT ENDORSED TO PM NURSE TO CONTINUE CARE.
--- NOTE | 2019-05-28 20:00 | NUR ---
WEDGER AND GLUER - NOTES - Pt resting in bed, not in any distress. Tolerating NC at 2lpm. SR on telemonitor. IV line access on DEE midline w/ D5NS x 75 ml/hr infusing well, LH G20 SL, both kept patent & intact w/ no s/sx of infection/infiltration noted. FC draining to gravity w/ adequate yellowish UOP. Safety precaution kept in place w/ bed in lowest & locked pos. Will continue to monitor.
[2019-05-28 20:11] LABS: HEMOGLOBIN 8.1 g/dL (13.5-17.5)
[2019-05-28] MEDS: MIRTAZAPINE 15 MG TABLET PO SCH (21:40)
--- NOTE | 2019-05-28 23:00 | NUR ---
PT HAD A BOWEL MOVEMENT, IT WAS SOFT AND BLACK, STOOL SAMPLE COLLECTED AND SENT FOR STOOL OB
[2019-05-29] VITALS (8 sets, daily range): BP systolic 115–142; BP diastolic 62–100
--- NOTE | 2019-05-29 01:09 | NUR ---
REPORT GIVEN TO TANNER MULLEN RN IN [place] FOR SIMONE
[2019-05-29] MEDS: IV D5/ 0.9% NACL 1,000 ML IV PRN ×2 (01:10→22:46)
--- NOTE | 2019-05-29 01:30 | NUR ---
RN TD NOTES, AT 0125 RECEIVED PATIENT VIA BED FROM STEFFANY DURAND FROM ICU, AWAKE A/O ABLE TO MOUTH WORDS, BREATHING EVEN AND UNLABORED, NO SOB/ACUTE DISTRESS NOTED AT THIS TIME, SR IN TELE MONITOR, WITH HR 50S AT THIS TIME, DEE MIDLINE PATENT AND INTACT, IVF INFUSING WELL AND PATIENT TOLERATED WELL, OF D5NS @ 75CC/HR, NO S/S OF INFECTION OR INFILTRATION NOTED, PIZANO CATHETER INTACT WITH CLOUDY YELLOW URINE, NPO EXCEPT MEDS, BED BATH PROVIDED TO PATIENT UPON ARRIVAL, AND NOW DRY AND CLEAN AND COMFORTABLE, REPOSITIONED, WITH OFFLOADING HEELS, S/R OF BED UP, CALL LIGHT W/I REACH, WILL CONTINUE TO MONITOR CLOSELY.
[2019-05-29] MEDS: ALBUTEROL FS 2.5 MG/0.5 ML VIAL.NEB NEB SCH ×6 (03:11→23:30)
[2019-05-29] MEDS: IPRATROPIUM NEB FS 0.5 MG/2.5 ML AMPUL.NEB NEB SCH ×6 (03:11→23:30)
[2019-05-29 04:20] LABS: OCCULT BLOOD STOOL POSITIVE (NEGATIVE)
[2019-05-29] MEDS: PIPERACILLIN /TAZOBACTAM 3.375 G in IV D5W 100 ML IV SCH ×3 (04:30→21:56)
--- NOTE | 2019-05-29 06:58 | NUR ---
RN TD NOTES, PATIENT ASLEEP BUT AROUSES EASILY TO VERBAL STIMULI, BREATHING EVEN AND UNLABORED, NO SOB/ACUTE DISTRESS NOTED AT THIS TIME, SR IN TELE MONITOR, WITH HR 60S AT THIS TIME, DEE MIDLINE PATENT AND INTACT, IVF INFUSING WELL AND PATIENT TOLERATED WELL, OF D5NS @ 75CC/HR, NO S/S OF INFECTION OR INFILTRATION NOTED, PIZANO CATHETER INTACT WITH CLOUDY YELLOW URINE, NO SIGNIFICANT CHANGE IN CONDITION DURING THE REST OF THE SHIFT, CONTINUE NPO EXCEPT MEDS, S/R OF BED UP, CALL LIGHT W/I REACH, WILL ENDORSE CONTINUITY OF CARE TO ONCOMING NURSE.
[2019-05-29] MEDS: ACETYLCYSTEINE 10% SOLN 400 MG/4 ML VIAL NEB SCH ×3 (07:27→23:30)
--- NOTE | 2019-05-29 07:35 | NUR ---
RN OPENING NOTES RECEIVED PATIENT AWAKE AND RESTING IN BED COMFORTABLY, SHOWS NO S/SX OF RESP DISTRESS OR PAIN. HE IS AOX1, MOUTHS WORDS TO YOU, AND BEDBOUND. HE IS ON 2L OF O2 VIA NC, TOLERATING WELL. TELE MONITOR SHOWING SR, HR IN THE 70S. HE HAS A DEE MIDLINE INFUSING D5 NS AT 75 ML.HR. PT IS NPO EXCEPT MEDS. WAITING FOR RESULTS OF STOOL OB. PATIENT HAS 3+ EDEMA ON BLE. SAFETY MEASURES HAVE BEEN IMPLEMENTED, CALL LIGHT IS WITHIN REACH, BED IS IN LOWEST AND LOCKED POSITION, SIDE RIALS UP X2, WILL CONTINUE TO MONITOR FOR ANY CHANGES.
[2019-05-29 08:09] LABS: CARBON DIOXIDE 28 mmol/L (21-32); CHLORIDE 111 mmol/L (98-107); CREATININE 0.4 mg/dL (0.6-1.3); GLUCOSE 117 mg/dL (74-106); POTASSIUM 3.8 mmol/L (3.5-5.1); SODIUM SERUM 141 mmol/L (136-145); UREA NITROGEN, BLOOD 4 mg/dL (7-18)
[2019-05-29 08:20] LABS: BASOPHILS % (AUTO) 0.6 % (0.0-2.0); EOSINOPHILS % (AUTO) 4.6 % (0.0-6.0); HEMATOCRIT 24 % (39-51); HEMOGLOBIN 7.9 g/dL (13.5-17.5); LYMPHOCYTES # (AUTO) 0.7 /CMM (0.8-4.8); LYMPHOCYTES % (AUTO) 14.2 % (20.0-44.0); MEAN CORPUSCULAR HGB CONC 33 g/dl (31.0-36.0); MEAN CORPUSCULAR VOLUME 94 fL (80-96); MONOCYTES # (AUTO) 0.4 /CMM (0.1-1.30); MONOCYTES % (AUTO) 9.5 % (2.0-12.0); NEUTROPHILS # (AUTO) 3.3 /CMM (1.8-8.9); NEUTROPHILS % (AUTO) 71.1 % (43.0-81.0); PLATELET COUNT (AUTO) 183 /CMM (150-450); RED BLOOD CELL COUNT(AUTO) 2.56 MIL/uL (4.5-6.0); WHITE BLOOD COUNT (AUTO) 4.7 K/uL (4.3-11.0)
[2019-05-29] MEDS: VANCOMYCIN 0.75 GM in IV D5W 250 ML IV SCH (08:27)
[2019-05-29] MEDS: BACLOFEN (10 MG) 10 MG TABLET PO SCH (08:28)
[2019-05-29] MEDS: PANTOPRAZOLE 40 MG VIAL IV SCH ×2 (08:28→21:36)
--- NOTE | 2019-05-29 10:06 | NUR ---
PT IS REFUSING TO BE CLEANED AND ROTATED, WILL TRY AGAIN LATER, WILL CONTINUE TO MONITOR
--- NOTE | 2019-05-29 11:30 | NUR ---
RT Pt is refusing HHN tx and EKG at this time, will try again later.
[2019-05-29] MEDS: SUCRALFATE 1 G TABLET PO SCH ×3 (12:00→21:36)
--- NOTE | 2019-05-29 12:30 | NUR ---
RT Checked back with pt and pt is still refusing HHN tx and EKG at this time. No SOB or respiratory distress noted. Charlie DURAND notified and aware. Addendum: 05/29/19 at 1235 by ANNMARIE SANDOVAL RT Amended: Links added.
--- NOTE | 2019-05-29 12:48 | NUR ---
pt is continuing to refuse treatment
--- NOTE | 2019-05-29 19:01 | NUR ---
RN CLOSING NOTES PATIENT IS RESTING COMFORTABLY IN BED, SHOWS NO S/SX OF RESP DISTRESS OR SOB. PT REFUSED ALL MEDS AND MOST TREATMENT TODAY, TRIED MULTIPLE ATTEMPTS. PT REFUSED POSSIBLE EGD TOMORROW, BROOKS IS AWARE. NO ACUTE CHANGES OCCURRED THROUGHOUT THE SHIFT, VITAL SIGNS ARE STABLE, PT NEEDS HAVE BEEN MET. SAFETY MEASURES HAVE BEEN IMPLEMENTED, CALL LIGHT IS WITHIN REACH, BED IS IN LOWEST AND LOCKED POSITION, SIDE RAILS UP X2, WILL ENDORSE TO NIGHTSHIFT RN FOR CONTINUITY OF CARE.
[2019-05-29] MEDS: FLUCONAZOLE (100 MG) 100 MG TABLET PO SCH (21:37)
[2019-05-29] MEDS: MIRTAZAPINE 15 MG TABLET PO SCH (21:37)
[2019-05-29] MEDS ORDERED: FUROSEMIDE 40 MG/4 ML VIAL IV ONE (22:00)
[2019-05-30] VITALS: BP 93/51
[2019-05-30] MEDS: IPRATROPIUM NEB FS 0.5 MG/2.5 ML AMPUL.NEB NEB SCH ×6 (03:29→23:56)
[2019-05-30] MEDS: ALBUTEROL FS 2.5 MG/0.5 ML VIAL.NEB NEB SCH ×6 (03:29→23:56)
[2019-05-30 04:00] VITALS: BP 96/48
[2019-05-30] MEDS: PIPERACILLIN /TAZOBACTAM 3.375 G in IV D5W 100 ML IV SCH ×3 (05:22→21:07)
--- NOTE | 2019-05-30 06:49 | NUR ---
SLITTER AND REWINDER NOTES, PATIENT ASLEEP BUT AROUSES EASILY TO VERBAL STIMULI, BREATHING EVEN AND UNLABORED, NO SOB/ACUTE DISTRESS NOTED AT THIS TIME, SR IN TELE MONITOR, WITH HR 60S AT THIS TIME, DEE MIDLINE PATENT AND INTACT, IVF INFUSING WELL AND PATIENT TOLERATED WELL, OF D5NS @ 75CC/HR, NO S/S OF INFECTION OR INFILTRATION NOTED, PIZANO CATHETER INTACT WITH CLOUDY YELLOW URINE, NO SIGNIFICANT CHANGE IN CONDITION DURING THE NIGHT CONTINUE NPO EXCEPT MEDS, FOR POSSIBLE FOR EGD, PATIENT REFUSING PROCEDURE, WILL ENDORSED TO F/U, S/R OF BED UP, CALL LIGHT W/I REACH, WILL ENDORSE CONTINUITY OF CARE TO ONCOMING NURSE.
[2019-05-30 07:07] LABS: BASOPHILS % (AUTO) 0.7 % (0.0-2.0); EOSINOPHILS % (AUTO) 3.6 % (0.0-6.0); HEMATOCRIT 24 % (39-51); LYMPHOCYTES # (AUTO) 0.8 /CMM (0.8-4.8); LYMPHOCYTES % (AUTO) 17.9 % (20.0-44.0); MEAN CORPUSCULAR HGB CONC 33 g/dl (31.0-36.0); MEAN CORPUSCULAR VOLUME 96 fL (80-96); MONOCYTES # (AUTO) 0.5 /CMM (0.1-1.30); MONOCYTES % (AUTO) 11.9 % (2.0-12.0); NEUTROPHILS # (AUTO) 2.8 /CMM (1.8-8.9); NEUTROPHILS % (AUTO) 65.9 % (43.0-81.0); PLATELET COUNT (AUTO) 186 /CMM (150-450); RED BLOOD CELL COUNT(AUTO) 2.55 MIL/uL (4.5-6.0); WHITE BLOOD COUNT (AUTO) 4.2 K/uL (4.3-11.0)
--- NOTE | 2019-05-30 07:49 | NUR ---
RN OPENING NOTES RECEIVED PATIENT RESTING IN BED COMFORTABLY, SHOWS NO S/SX OF RESP DISTRESS OR SOB. HE IS AOX2, ABLE TO WHISPER WORDS TO YOU, AND BED BOUND. TELE MONITOR SHOWING NSR WITH HR IN THE 70'S. SKIN IS INTACT, ASIDE FROM SACRAL SCAR, WILL ADDRESS ACCORDING TO WOUND CAREPLAN. PT IS NPO EXCEPT MEDS FOR POSSIBLE EGD TODAY. DEE MIDLINE IS INTACT AND INFUSING D5 NS AT 75 ML/HR. VITAL SIGNS ARE STBALE. SAFETY MEASURES HAVE BEEN IMPLEMENTED, CALL LIGHT IS WITHIN REACH, BED IS IN LOWEST AND LOCKED POSITION, SIDE RIALS UP X2, WILL CONTINUE TO MONITOR FOR ANY CHANGES.
[2019-05-30 08:00] VITALS: BP 124/65
[2019-05-30] MEDS: ACETYLCYSTEINE 10% SOLN 400 MG/4 ML VIAL NEB SCH ×3 (08:00→23:56)
[2019-05-30] MEDS: SUCRALFATE 1 G TABLET PO SCH ×5 (08:21→21:07)
[2019-05-30] MEDS: PANTOPRAZOLE 40 MG VIAL IV SCH ×2 (08:49→21:07)
[2019-05-30] MEDS: BACLOFEN (10 MG) 10 MG TABLET PO SCH (08:58)
[2019-05-30] MEDS: FLUCONAZOLE (100 MG) 100 MG TABLET PO SCH (08:58)
[2019-05-30 12:00] VITALS: BP 135/70
[2019-05-30 16:00] VITALS: BP 132/82
[2019-05-30] MEDS ORDERED: PEG 3350/NA SULF,BICARB,CL/KCL 4,000 ML BOTTLE PO ONE (17:00)
--- NOTE | 2019-05-30 19:10 | NUR ---
RN CLOSING NOTES PATIENT IS RESTING IN BED COMFORTABLY, DOES NO SHOW ANY S/SX OF RESP DISTRESS, PAIN, OR SOB AT THIS TIME. NO ACUTE CHANGES OCCURRED THROUGHOUT THE SHIFT, VITAL SIGNS ARE STABLE, PT NEEDS HAVE BEEN MET. SAFETY MEASURES HAVE BEEN IMPLEMENTED, CALL LIGHT IS WITHIN REACH, BED IS IN LOWEST AND LOCKED POSITION, SIDE RAILS UP X2, WILL ENDORSE TO NIGHTSHIFT RN FOR CONTINUITY OF CARE.
[2019-05-30] MEDS: IV D5/ 0.9% NACL 1,000 ML IV PRN (19:25)
[2019-05-30 20:00] VITALS: BP 144/76
--- NOTE | 2019-05-30 20:37 | NUR ---
MEDICAL CLAIMS EXAMINER OPENING NOTES RECEIVED REPORT FROM AMIE DURAND. PATIENT A/A/O X1-2, ABLE TO MOUTH & MAKE SOME NEEDS KNOWN. BREATHING EVEN & UNLABORED, TOLERATING O2 @ 2LPM VIA NC. NO SIGNS OF RESPIRATORY DISTRESS NOTED. ON TELE W/ SINUS TACH, HR 90S. LEFT UPPER ARM MIDLINE INTACT & PATENT W/ DRESSING CDI & IVF NS INFUSING WELL @ 75 ML/HR. PIZANO CATH DRAINING YELLOW URINE. DENIES ANY PAIN OR DISCOMFORT @ THIS TIME. SAFETY MEASURES IN PLACE W/ SIDE RAILS UP & BED ALARM ON. CALL LIGHT WITHIN REACH. TURNED & REPOSITIONED FOR COMFORT & HOB ELEVATED FOR ASPIRATION PRECAUTIONS. WILL CONTINUE TO MONITOR.
[2019-05-30] MEDS: MIRTAZAPINE 15 MG TABLET PO SCH (21:07)
[2019-05-31] VITALS: BP 132/67
[2019-05-31 04:00] VITALS: BP 156/68
[2019-05-31] MEDS: IPRATROPIUM NEB FS 0.5 MG/2.5 ML AMPUL.NEB NEB SCH ×6 (04:11→23:07)
[2019-05-31] MEDS: ALBUTEROL FS 2.5 MG/0.5 ML VIAL.NEB NEB SCH ×6 (04:11→23:07)
[2019-05-31] MEDS: PIPERACILLIN /TAZOBACTAM 3.375 G in IV D5W 100 ML IV SCH ×4 (04:12→19:28)
[2019-05-31 06:55] LABS: BASOPHILS % (AUTO) 0.7 % (0.0-2.0); EOSINOPHILS % (AUTO) 3.8 % (0.0-6.0); HEMATOCRIT 26 % (39-51); HEMOGLOBIN 8.6 g/dL (13.5-17.5); LYMPHOCYTES # (AUTO) 0.8 /CMM (0.8-4.8); MEAN CORPUSCULAR HGB CONC 33 g/dl (31.0-36.0); MEAN CORPUSCULAR VOLUME 95 fL (80-96); MONOCYTES # (AUTO) 0.6 /CMM (0.1-1.30); MONOCYTES % (AUTO) 12.3 % (2.0-12.0); NEUTROPHILS # (AUTO) 3.5 /CMM (1.8-8.9); NEUTROPHILS % (AUTO) 67.2 % (43.0-81.0); PLATELET COUNT (AUTO) 242 /CMM (150-450); RED BLOOD CELL COUNT(AUTO) 2.74 MIL/uL (4.5-6.0); WHITE BLOOD COUNT (AUTO) 5.1 K/uL (4.3-11.0)
[2019-05-31 07:17] LABS: CALCIUM, SERUM 8.1 mg/dL (8.5-10.1); CARBON DIOXIDE 27 mmol/L (21-32); CHLORIDE 112 mmol/L (98-107); CREATININE 0.4 mg/dL (0.6-1.3); GLUCOSE 108 mg/dL (74-106); POTASSIUM 3.4 mmol/L (3.5-5.1); SODIUM SERUM 146 mmol/L (136-145); UREA NITROGEN, BLOOD 2 mg/dL (7-18)
[2019-05-31] MEDS: ACETYLCYSTEINE 10% SOLN 400 MG/4 ML VIAL NEB SCH ×3 (07:20→23:07)
--- NOTE | 2019-05-31 07:44 | NUR ---
RN OPENING NOTES REPORT RECEIVED FROM INTAKE COORDINATOR RN. PT IN BED SLEEPING. NO SIGNS OF RESPIRATORY DISTRESS OR PAIN NOTED AT PRESENT TIME. PT HAS NC ON SET TO 2 L O2. PT HAS A PIZANO DRAINING TO GRAVITY. TELE BOX HR IN 96'S ST. BED IS LOCKED AND IN LOWEST POSITION WITH CALL LIGHT IN REACH. WILL CONTINUE TO MONITOR.
[2019-05-31 08:00] VITALS: BP 126/82
[2019-05-31] MEDS: SUCRALFATE 1 G TABLET PO SCH ×5 (08:29→21:33)
[2019-05-31] MEDS: PANTOPRAZOLE 40 MG VIAL IV SCH ×2 (08:29→20:37)
[2019-05-31] MEDS: BACLOFEN (10 MG) 10 MG TABLET PO SCH (08:29)
[2019-05-31] MEDS: FLUCONAZOLE (100 MG) 100 MG TABLET PO SCH (08:29)
[2019-05-31] MEDS ORDERED: POTASSIUM CHLORIDE 20 MEQ POWDER PACKET PO SCH (10:30)
[2019-05-31 16:00] VITALS: BP 130/73
--- NOTE | 2019-05-31 19:00 | NUR ---
RN OPENING NOTES: PATIENT AWAKE AND ABLE TO MOUTH WORDS. A&OX2. ON PIZANO, DRAINING CLEAR YELLOW URINE. PATIENT ON CLEAR LIQUIDS, TOLERATING WELL. DEE MIDLINE INTACT, PATENT, AND FLUSHING WELL. SAFETY PRECAUTIONS IMPLEMENTED. BED LOCKED AND IN LOWEST POSITION. CALL LIGHT WITHIN REACH. WILL CONT. TO MONITOR.
[2019-05-31] MEDS: IV D5/ 0.9% NACL 1,000 ML IV PRN (19:27)
--- NOTE | 2019-05-31 19:35 | NUR ---
RN CLOSING NOTES SIMONE ENDORSED TO VP DESIGN RN. REPORT GIVEN TO VP DESIGN RN.
[2019-05-31 20:00] VITALS: BP 159/83
[2019-05-31] MEDS: MIRTAZAPINE 15 MG TABLET PO SCH (21:33)
[2019-06-01] MEDS: ALBUTEROL FS 2.5 MG/0.5 ML VIAL.NEB NEB SCH ×6 (03:30→23:36)
[2019-06-01] MEDS: IPRATROPIUM NEB FS 0.5 MG/2.5 ML AMPUL.NEB NEB SCH ×6 (03:30→23:36)
[2019-06-01] MEDS: PIPERACILLIN /TAZOBACTAM 3.375 G in IV D5W 100 ML IV SCH ×3 (03:36→20:14)
[2019-06-01 04:00] VITALS: BP 135/71
--- NOTE | 2019-06-01 06:35 | NUR ---
RN CLOSING NOTES: PATIENT IN BED, ASLEEP, BUT EASILY AROUSABLE. NO RESPIRATORY DISTRESS. NO PAIN. CONT. ON ABX. SAFETY PRECAUTIONS IMPLEMENTED. ALL NEEDS ATTENDED. CALL LIGHT WITHIN REACH. WILL ENDORSE TO AM SHIFT NURSE FOR CONTINUITY OF CARE.
[2019-06-01 06:58] LABS: BASOPHILS # (AUTO) 0.1 /CMM (0.0-0.2); EOSINOPHILS % (AUTO) 4.1 % (0.0-6.0); HEMATOCRIT 27 % (39-51); HEMOGLOBIN 9.1 g/dL (13.5-17.5); LYMPHOCYTES % (AUTO) 17.1 % (20.0-44.0); MEAN CORPUSCULAR HGB CONC 33 g/dl (31.0-36.0); MEAN CORPUSCULAR VOLUME 94 fL (80-96); MONOCYTES # (AUTO) 0.8 /CMM (0.1-1.30); MONOCYTES % (AUTO) 13.3 % (2.0-12.0); NEUTROPHILS # (AUTO) 3.8 /CMM (1.8-8.9); NEUTROPHILS % (AUTO) 64.5 % (43.0-81.0); PLATELET COUNT (AUTO) 317 /CMM (150-450)
[2019-06-01 07:14] LABS: CALCIUM, SERUM 8.4 mg/dL (8.5-10.1); CARBON DIOXIDE 27 mmol/L (21-32); CHLORIDE 111 mmol/L (98-107); CREATININE 0.4 mg/dL (0.6-1.3); GLUCOSE 106 mg/dL (74-106); POTASSIUM 3.3 mmol/L (3.5-5.1); SODIUM SERUM 145 mmol/L (136-145); UREA NITROGEN, BLOOD 1 mg/dL (7-18)
[2019-06-01] MEDS: ACETYLCYSTEINE 10% SOLN 400 MG/4 ML VIAL NEB SCH ×3 (07:32→23:36)
[2019-06-01 08:00] VITALS: BP 110/66
[2019-06-01] MEDS: SUCRALFATE 1 G TABLET PO SCH ×5 (08:29→21:45)
[2019-06-01] MEDS: FLUCONAZOLE (100 MG) 100 MG TABLET PO SCH ×2 (09:00→09:36)
[2019-06-01] MEDS: PANTOPRAZOLE 40 MG VIAL IV SCH ×2 (09:36→20:12)
[2019-06-01] MEDS: BACLOFEN (10 MG) 10 MG TABLET PO SCH (09:36)
[2019-06-01] MEDS ORDERED: POTASSIUM CHLORIDE 10 MEQ/50 ML PREMIXED IVPB FOR PERIPHERAL LINE IV ONE (10:17)
[2019-06-01] MEDS ORDERED: POTASSIUM CHLORIDE 20 MEQ TAB.PRT.SR PO SCH (10:30)
[2019-06-01] MEDS ORDERED: POTASSIUM CHLORIDE 10 MEQ/50 ML PREMIXED IVPB FOR PERIPHERAL LINE IV SCH (11:00)
[2019-06-01] MEDS: POTASSIUM CL. PREMIX PERIPHER. 50 ML IV SCH ×4 (12:16→16:02)
[2019-06-01 16:00] VITALS: BP 120/72
--- NOTE | 2019-06-01 19:00 | NUR ---
RN OPENING NOTES: PATIENT ASLEEP BUT EASILY AWAKENED. ABLE TO MOUTH WORDS. A&OX2. ON PIZANO PATENT AND DRAINING URINE. PATIENT NOW ON PUREED DIET. DEE MIDLINE INTACT, PATENT, AND FLUSHING WELL. ON TKO. CLEAR LUNG SOUNDS UPON AUSCULTATION. SAFETY PRECAUTIONS IMPLEMENTED. BED LOCKED AND IN LOWEST POSITION. CALL LIGHT WITHIN REACH. WILL CONT. TO MONITOR.
[2019-06-01 20:00] VITALS: BP 151/72
[2019-06-01] MEDS: MIRTAZAPINE 15 MG TABLET PO SCH (21:45)
[2019-06-02] MEDS: IPRATROPIUM NEB FS 0.5 MG/2.5 ML AMPUL.NEB NEB SCH ×4 (03:08→14:40)
[2019-06-02] MEDS: ALBUTEROL FS 2.5 MG/0.5 ML VIAL.NEB NEB SCH ×4 (03:08→14:40)
[2019-06-02 04:00] VITALS: BP 130/80
[2019-06-02] MEDS: PIPERACILLIN /TAZOBACTAM 3.375 G in IV D5W 100 ML IV SCH ×2 (04:02→12:47)
[2019-06-02 07:16] LABS: BASOPHILS # (AUTO) 0.1 /CMM (0.0-0.2); EOSINOPHILS % (AUTO) 3.1 % (0.0-6.0); HEMATOCRIT 30 % (39-51); HEMOGLOBIN 9.8 g/dL (13.5-17.5); LYMPHOCYTES # (AUTO) 1.1 /CMM (0.8-4.8); LYMPHOCYTES % (AUTO) 15.7 % (20.0-44.0); MEAN CORPUSCULAR HGB CONC 33 g/dl (31.0-36.0); MEAN CORPUSCULAR VOLUME 95 fL (80-96); MONOCYTES # (AUTO) 0.9 /CMM (0.1-1.30); MONOCYTES % (AUTO) 13.1 % (2.0-12.0); NEUTROPHILS # (AUTO) 4.8 /CMM (1.8-8.9); NEUTROPHILS % (AUTO) 67.1 % (43.0-81.0); PLATELET COUNT (AUTO) 392 /CMM (150-450); RED BLOOD CELL COUNT(AUTO) 3.16 MIL/uL (4.5-6.0); WHITE BLOOD COUNT (AUTO) 7.1 K/uL (4.3-11.0)
[2019-06-02 07:19] LABS: CALCIUM, SERUM 8.8 mg/dL (8.5-10.1); CARBON DIOXIDE 26 mmol/L (21-32); CHLORIDE 109 mmol/L (98-107); CREATININE 0.5 mg/dL (0.6-1.3); GLUCOSE 104 mg/dL (74-106); POTASSIUM 3.8 mmol/L (3.5-5.1); SODIUM SERUM 143 mmol/L (136-145); UREA NITROGEN, BLOOD 2 mg/dL (7-18)
--- NOTE | 2019-06-02 07:24 | NUR ---
RN CLOSING NOTES: PATIENT AWAKE, A/OX2, MOUTHS WORDS. NO RESPIRATORY DISTRESS. NO PAIN. SAFETY PRECAUTIONS IMPLEMENTED. ALL NEEDS ATTENDED. CALL LIGHT WITHIN REACH. ENDORSED TO AM SHIFT NURSE FOR CONTINUITY OF CARE.
[2019-06-02] MEDS: ACETYLCYSTEINE 10% SOLN 400 MG/4 ML VIAL NEB SCH ×2 (07:56→14:40)
[2019-06-02 08:00] VITALS: BP 150/88
[2019-06-02] MEDS ORDERED: FLUC100T8 PO (09:00)
[2019-06-02] MEDS: SUCRALFATE 1 G TABLET PO SCH ×2 (10:52→12:48)
[2019-06-02] MEDS: PANTOPRAZOLE 40 MG VIAL IV SCH (10:52)
[2019-06-02] MEDS: FLUCONAZOLE (100 MG) 100 MG TABLET PO SCH (10:52)
[2019-06-02] MEDS: BACLOFEN (10 MG) 10 MG TABLET PO SCH (10:53)
--- NOTE | 2019-06-02 15:15 | NUR ---
PICTURES TO RIGHT HAND, LEFT FOREARM, AND SACRUM COMPLETED. PICC LINE TO LEFT ARM REMOVED, PIZANO CATHETER NOT REMOVED. REPORT TO AMBULANCE DRIVERS AND TO CAREGIVER AT BEDSIDE GIVEN. PT WITH PRESCRIPTION X 1 GIVEN TO DRIVERS WITH INSTRUCTIONS TO BE TRANSPORTED TO HOME. FOR F-U CARE WITH PCP, ID PHYSICIAN. DISCHARGED TO HOME PER GURNEY TO AMBULANCE
[2019-06-02 16:00] VITALS: BP 136/89
== END 2019-06-02 15:30 | disposition home health service (06) | DRG 871 ==
LOC: ER 07:05 → TELE 10:01 → ICU 05-23 11:01 → TELE-TD 05-29 01:23 → MEDSG1 05-29 09:53 → TELE1 05-29 11:33 → MEDSG1 05-31 10:13
PROVIDERS: ATTEND Family Medicine
PROC: 5A09357 Assistance with Respiratory Ventilation, Less than 24 Consecutive Hours, Continuous Positive Airway Pressure (ICD-10-PCS; principal; 2019-05-23)
PROC: 05H633Z Insertion of Infusion Device into Left Subclavian Vein, Percutaneous Approach (ICD-10-PCS; 2019-05-23)
PROC: 30233N1 Transfusion of Nonautologous Red Blood Cells into Peripheral Vein, Percutaneous Approach (ICD-10-PCS; 2019-05-27)
DX: A41.9 Sepsis, unspecified organism (principal); R53.2 Functional quadriplegia; G92 Toxic encephalopathy; J96.21 Acute and chronic respiratory failure with hypoxia; J96.22 Acute and chronic respiratory failure with hypercapnia; J15.9 Unspecified bacterial pneumonia; N39.0 Urinary tract infection, site not specified; D68.69 Other thrombophilia; J98.11 Atelectasis; J44.0 Chronic obstructive pulmonary disease with (acute) lower respiratory infection; E87.2 Acidosis; J90 Pleural effusion, not elsewhere classified; K92.2 Gastrointestinal hemorrhage, unspecified; G80.9 Cerebral palsy, unspecified; K21.9 Gastro-esophageal reflux disease without esophagitis; E88.09 Other disorders of plasma-protein metabolism, not elsewhere classified; Z86.718 Personal history of other venous thrombosis and embolism; Z66 Do not resuscitate; J45.909 Unspecified asthma, uncomplicated; B96.5 Pseudomonas (aeruginosa) (mallei) (pseudomallei) as the cause of diseases classified elsewhere; I49.3 Ventricular premature depolarization; I50.9 Heart failure, unspecified; L89.90 Pressure ulcer of unspecified site, unspecified stage; Z95.828 Presence of other vascular implants and grafts; Z87.898 Personal history of other specified conditions; D50.9 Iron deficiency anemia, unspecified
CPT/HCPCS: 31720; 36415; 36600; 71045-TC; 80048-TC; 80053-TC; 80061-TC; 80076-TC; 80202-TC; 81000-TC; 82272-TC; 82728-TC; 82803-TC; 82962-TC; 83540-TC; 83605-TC; 83735-TC; 84100-TC; 84439-TC; 84443-TC; 84484-TC; 85025-TC; 85027-TC; 85730-TC; 86850-TC; 86921-TC; 87040-TC; 87070-TC; 87081-TC; 87086-TC; 87186-TC; 93307-TC; 94760-TC; 94799-TC; 97112-TC; 97530-TC; A9563; C9113; G0378; J0456; J0696; J1650; J1815; J2543; J2920; J3370; J3475; J3480; J3490; J7030; J7040; J7042; J7050; J7060; P9016-BL